=== PATIENT | male | born 1970 | race Caucasian/White ===

== ENCOUNTER → 2017-10-30 | Outpatient (CLI) | payer BC, SELFPAY | PROVIDERS: Family Provider Internal Medicine; Visit Provider Internal Medicine | DX: R07.9 Chest pain, unspecified (principal) | CPT/HCPCS: 78452; 93017; A9502 ==

== ENCOUNTER → 2018-03-30 10:54 | Outpatient (CLI) | payer BC, SELFPAY ==
--- NOTE | 2018-03-30 11:00 | US_ITS ---
US extremity RT limited CLINICAL INDICATION: ITS.REASON: RT GROIN PAIN AND SWELLING ORDERING PHYSICIAN: Bryant Hogan PATIENT AGE: 47 years Comparison: None FINDINGS: General survey was performed of the right groin. There are a few small lymph nodes measuring up to 3 x 0.7 cm. No mass or abnormal fluid collection. IMPRESSION: Small inguinal lymph nodes otherwise negative
== END ==
PROVIDERS: PCP Internal Medicine; Visit Provider Internal Medicine
DX: R10.31 Right lower quadrant pain (principal); R19.09 Other intra-abdominal and pelvic swelling, mass and lump
CPT/HCPCS: 76882

== ENCOUNTER → 2019-02-04 14:05 | Outpatient (CLI) | payer BC, SELFPAY ==
--- NOTE | 2019-02-04 14:08 | MR_ITS ---
MR hip RT wo con Ordering Physician: Bryant Hogan Patient Age: 48 years: Male HISTORY: ITS.REASON: RIGHT GROIN PAIN Right groin right hip pain 3 years has gotten worse recently. Pain worse with pronounced intermittent swelling in groin. TECHNIQUE: Multiplanar multisequence imaging 1.5 T jenn MRI COMPARISON :No recent study. Right hip exam from December 2007 available FINDINGS Right hip.. Narrowing superior right hip joint space reflecting degenerative arthritic changes most evident here.. Minor sclerotic changes at the lateral roof of the right acetabulum associated. This was evident on previous plain film & again evident today if not slightly more pronounced at the lateral roof of acetabulum.. The femoral head demonstrates only some minor sclerotic changes with anterior aspect with the joint space is most narrowed. Minor hypertrophic ridging, lipping is seen about the margin of acetabulum. This is slightly more evident inferiorly on the right than left. With this is also some minor hypertrophic ridging about the base of the femoral head, most evident inferiorly, as seen on coronal image 24, 23 Acetabular labrum difficult to visualize but appears smaller I believe on the right than left likely degenerated but present The femoral head itself is normal density with no evidence of avascular necrosis or lesion. No fracture. There is a joint effusion at the right hip. Pelvis. Urinary bladder wall upper normal thickness in part reflecting is contracted state. Generous vessels at the pelvic basin and about prostate. The prostate normal size. No pelvic adenopathy or mass. Otherwise at the right groin I see no hernia or adenopathy at the right inguinal region. Muscles and tendons appear reasonably symmetric. IMPRESSION: ......... Degenerative Arthritic changes Right hip. Right hip joint effusion associated ... Joint space narrowing at superior right hip joint most evident. .....Mild sclerosis lateral roof of acetabulum with very minor sclerosis anterior superior femoral head. .... Mild hypertrophic lipping about the joint margin particularly notable inferiorly, both from at acetabulum & base of femoral head. .... Likely degenerated slightly small superior labrum. .... No AVN of femoral head
== END ==
PROVIDERS: PCP Internal Medicine; Visit Provider Internal Medicine
DX: R10.31 Right lower quadrant pain (principal)
CPT/HCPCS: 73721

== ENCOUNTER → 2021-01-25 09:01 | Outpatient (CLI) | payer BC, SELFPAY ==
--- NOTE | 2021-01-25 09:08 | XR_ITS ---
PROCEDURE: XR CERVICAL SPINE 5V CLINICAL INDICATION: CERVICALGIA COMPARISON: No exams were available for comparison FINDINGS: No fracture or dislocation. No lytic or blastic change. There is normal mineralization. The joint spaces are well-preserved. No significant degenerative/arthritic changes. No erosive changes evident. Other findings:Minimal soft tissue calcification posteriorly at the C4-C5 level IMPRESSION: Negative cervical spine Dictated by: Shaun Ragland MD 01/25/2021 09:36 Shaun Ragland MD in [facility] 01/25/2021 09:36
== END ==
PROVIDERS: PCP Internal Medicine; Visit Provider Internal Medicine
DX: M54.2 Cervicalgia (principal)
CPT/HCPCS: 72050

== ENCOUNTER → 2021-01-30 09:44 | Outpatient (CLI) | payer BC, SELFPAY ==
--- NOTE | 2021-01-30 09:48 | XR_ITS ---
PROCEDURE: XR CHEST 2V CLINICAL HISTORY: CHEST PAIN COMPARISON: CR CXR CHEST(2 VIEWS-NOT PORTABLE) from 11/06/2014 FINDINGS: The cardiomediastinal silhouette and pulmonary vascularity are within normal limits. The lungs are clear without infiltrates, suspicious nodules, or pleural effusions. Hyperinflation which may be related to COPD/chronic bronchitis. No acute bony findings. IMPRESSION: Hyperinflation which may be seen with COPD asthma or chronic bronchitis. Otherwise negative Dictated by: Shaun Ragland MD 01/30/2021 09:57 Shaun Ragland MD in [facility] 01/30/2021 09:57
--- NOTE | 2021-01-30 10:08 | ECG_ITS ---
APPROVED REPORT Exam: Resting ECG HR:65 bpm ECG Measurements Heart Rate 65 AXES OK 142 P 50 QRSd 88 QRS 103 QT 396 T 12 QTc 411 Conclusion Normal sinus rhythm Rightward axis Minor NDST-T Changes Borderline ECG Electronically signed by : Bryant Hogan, 01/30/2021 11:28:59
[2021-01-30 10:31] LABS: D-Dimer 0.52 ug/mL (0.0-0.5)
[2021-01-30 11:11] LABS: Troponin I < 0.01 ng/ml (0.00-0.034)
--- NOTE | 2021-01-30 11:39 | CT_ITS ---
PROCEDURE: CT ANGIO CHEST CLINCIAL INDICATION: CHEST PAIN Chest pain and pressure COMPARISON: No exams were available for comparison TECHNIQUE: IV Contrast: 70ML Isovue 370 Axial images obtained with sagittal and coronal reformats. All CT scans at the facility use one or more dose reduction, viz: automated exposure control, ma/kV adjustment per patient size (including targeted exams where dose is matched to indication, i.e. head), or iterative reconstruction technique. FINDINGS: HEART AND MEDIASTINAL STRUCTURES: No evidence of pulmonary embolus, aortic aneurysm, or aortic dissection.. Coronary artery calcifications are noted. LUNGS AND PLEURAL SPACES: There is a 3 mm noncalcified nodule in the right middle lobe. Atelectatic changes are present in the right lung base posteriorly. There is a subpleural 4 mm nodule in the right lower lobe medially an additional subpleural 4 mm nodules present in the right lower lobe posterior laterally. Calcified granuloma is present in the left lower lobe. BONY STRUCTURES: No acute bony abnormalities apparent. UPPER ABDOMEN: Unremarkable. ADDITIONAL FINDINGS: No other significant abnormalities. IMPRESSION: 1. No evidence of pulmonary embolus. 2. There are few noncalcified small pulmonary nodules which are nonspecific. Stability may be confirmed with follow-up. Dictated by: Shaun Ragland MD 01/30/2021 14:29 Shaun Ragland MD in [facility] 01/30/2021 14:29
== END ==
PROVIDERS: PCP Internal Medicine; Visit Provider Internal Medicine
DX: R07.9 Chest pain, unspecified (principal)
CPT/HCPCS: 36415; 71046; 71275; 84484; 85378; 93005; Q9967

== ENCOUNTER → 2021-02-04 08:00 | Outpatient (CLI) | payer BC, SELFPAY ==
--- NOTE | 2021-02-04 | CA_ITS ---
APPROVED REPORT EXAM: Comprehensive 2D, Doppler, and color-flow Echocardiogram Plant Packer: Sweta Mariscal CRT Ht: 6 ft 2 in Wt: 240lbs BSA: 2.35 BP: 130/80 mmHg Indications: Chest Pain, Atrial Fibrillation, Syncope, Palpitations, Hyperlipidemia, Hypertension/HDD 2D Dimensions LVOT 2.00 cm (M/F) 1.5-2.5 LA Volume 38.30 mL LA Volume Index 16.30 mL/m2 (M/F) 16-34 M-Mode Dimensions RVDd 1.98 cm (0.9-2.6) LA Diam 4.19 cm (1.9-4.0) LVDd 5.27 cm (3.5-5.7) Ao Diam 3.66 cm (2.0-3.7) LVDs 3.77 cm (3.5-5.7) IVSd 1.38 cm (0.6-1.1) PWd 0.78 cm (0.6-1.1) EF (Teich) 54.50% FS 28.50% EDV (Teich) 133.60 mL TAPSE 3.55 (<1.7) ESV (Teich) 60.80 mL LV Diastology E Decel Time 250.00 (160-240 msec) E/A Ratio 1.23 MED E' 11.30 (< 7 cm/sec) MED A' 10.20 cm/s E'/MED E' Ratio 7.31 (>14) LAT E' 10.80 (<10 cm/sec) LAT A' 9.20 cm/s E/LAT E' Ratio 7.65 (>14) Aortic Valve AO Peak GR. 8.80 mmHg Mitral Valve MV A Velocity 67.00 (40-130 cm/s) E/A Ratio 1.23 MV Decel. Time 250.00 (160-240 ms) Pulmonary Valve PV Peak Velocity 69.00 (50-150 cm/s) Tricuspid Valve TR P. Velocity 271.00 cm/s RAP Estimate 10.00 mmHg RVSP 39.30 mmHg Left Ventricle Left atrium is mildly enlarged, left ventricle is normal size, mild concentric left ventricular hypertrophy, visually estimated ejection fraction 55% with no regional wall motion abnormality, diastolic parameters are inconclusive. Right Ventricle Right atrium and right ventricle are normal size and contractility. Aortic Valve Aortic valve is minimally thickened and fibrosed, there is no aortic stenosis or aortic insufficiency. Mitral Valve Mitral valve is grossly normal, there is trace mitral regurgitation Tricuspid Valve Tricuspid grossly normal, there is trace tricuspid regurgitation. Pulmonic Valve Pulmonic valve is poorly visualized. Great Vessels Aortic root is normal size. Pericardium No significant pericardial effusion noted. Conclusion 1. Mildly enlarged left atrium, normal left ventricular size, mild concentric left ventricular hypertrophy, visually estimated ejection fraction 55% with no regional wall motion abnormality, diastolic parameters are inconclusive. 2. Trace mitral and tricuspid regurgitation. 3. No significant pericardial effusion noted. Electronically signed by : Ketan Taylor, 02/04/2021 20:13:30
== END ==
LOC: RT 08:00
PROVIDERS: PCP Internal Medicine; Visit Provider Internal Medicine
DX: R07.9 Chest pain, unspecified (principal); R55 Syncope and collapse
CPT/HCPCS: 93306

== ENCOUNTER → 2021-02-08 11:07 | Outpatient (CLI) | payer BC, SELFPAY ==
--- NOTE | 2021-02-08 | CA_ITS ---
APPROVED REPORT Exam: Exercise Treadmill Technologist: Tabby Gomez, Ht: 6 ft 2 in Wt: 240 lbs BSA: 2.35 m2 HR: 65 bpm BP: 147/90 mmHg Rhythm: NSR Medical History Medical History: HTN, Hyperlipidemia Medications: Lisinopril,,,,, Zetia,,,,, Atorvastatin,,,,, CarTIA,,,,, ElQUIS,,,,, Allergies: AMPICILLIN Cardiac Risk Factors: HTN, Hyperlipidemia, FHX of CAD Stress Test Details Test: Alessandro HR Resting HR: 79 bpm Max Heart Rate (APMHR): 172.934360 bpm Max HR Achieved: 143 bpm Target HR (85% APMHR): 146.574295 bpm % of APMHR: 83.14 Recovery HR: 103 bpm BP Resting BP: 147.0/90.0 mmHg Max BP: 167.0/83.0 mmHg Recovery BP: 167.0/83.0 mmHg ECG Resting ECG: NSR Clinical Reason for Termination: Dyspnea, HIP PAIN Exercise duration: 08:03 min Highest Stage Achieved: Exercise capacity: 10.1 METs Stress ECG Conclusion PATIENT WALKED 8:00 ON ALESSANDRO PROTOCOL WITH HEART RATE 143 BPM. METS = 10.1. TEST STOPPED DUE TO SOA AND HIP PAIN. NO CP. PATIENT HAD SOA AND HIP PAIN. NO ARRHYTHMIAS/ECTOPY. <1.5MM ST SEGMENT CHANGES. ABNORMAL NONDIAGNOSTIC ST SEGMENT CHANGES INFEROLAT. Test Summary . Sitting . . . . . . . . Stage held . Stage resumed Stop exercise at 08:03 . . . . . . Electronically signed by : Ketan Taylor, 02/09/2021 13:18:19
--- NOTE | 2021-02-08 11:09 | NM_ITS ---
APPROVED REPORT Exam: Nuclear Stress Test Indication: HTN, HYPERLIPIDEMIA, FM HX, PALPITATIONS, A-FB, ABLATION, SYNCOPE Patient Location: Outpatient Stress Tech: Araseli Patricia [place] Tech:Ilda Gongora, ARRT, RT (R)(N) Ht: 6 ft 2 in Wt: 240 lbs HR: 65 bpm BP: 147/90 mmHg BSA: 2.35 m2 BMI: 30.8 History: HTN, HYPERLIPIDEMIA, FM HX, PALPITATIONS, A-FB, ABLATION, SYNCOPE Procedure: Patient exercised on Alessandro protocol 8:00 minutes and sec, resting heart rate 65 bpm, resting blood pressure 147/90 mmHg, with exercise maximum heart rate achived was 143 bpm which is 98 % of the maximum predicted heart rate and blood pressure was 166/90 mmHg. Test was stopped due to SOA, HIP PAIN. Patient denied any complaint of chest pain. Patient has Good exercise capacity, achieved 10.1 METs of workload on treadmill, the blood pressure response to exercise was Adequate. Electrocardiogram Resting electrocardiogram shows sinus rhythm, with exercise there is less than 1.[address] segment depression noted from the baseline EKG, the EKG portion of the exercise Myoview is nondiagnostic due to baseline abnormal EKG. Cardiac Stress and Resting SPECT Images: Cardiac Stress and Resting SPECT images were obtained using technetium 99m Myoview 30.4 mCi stress and 10.48 mCi at rest. Gated SPECT for analysis of segmental wall motion and calculation of the ejection fraction also done. Prone images were also obtained. Cardiac stress and resting SPECT images show a mild fixed defect in the anterior apical wall with reduced contractility on the gated SPECT is likely secondary to nontransmural myocardial scarring, no reversible ischemia seen, computer derived ejection fraction is 52% with mild anterior apical wall hypokinesis. Right ventricle is normal size and contractility. Conclusion: 1. The EKG portion of the exercise Myoview is nondiagnostic due to baseline abnormal EKG, patient has good exercise capacity achieved 10.1 mets of workload on treadmill, the blood pressure response to exercise was adequate. 2. Scintigraphic evidence of nontransmural myocardial scarring and a small area in the anterior apical wall, computer derived ejection fraction is 52% with segmental wall motion abnormality described above, right ventricle is normal size and contractility. 3. Abnormal exercise Myoview study. Electronically signed by : Ketan Taylor, 02/09/2021 13:32:41
== END ==
LOC: RAD 11:07
PROVIDERS: PCP Internal Medicine; Visit Provider Internal Medicine
DX: R07.9 Chest pain, unspecified (principal); R55 Syncope and collapse
CPT/HCPCS: 78452; 93017; A9502

== ENCOUNTER → 2021-03-18 14:59 | Outpatient (CLI) | payer BC, SELFPAY ==
--- NOTE | 2021-03-18 | CA_ITS ---
APPROVED REPORT Trapper Animal: CT Laterality: Bilateral Indications: Dizziness and Vertigo, Syncope Risk Factors Hypertension: Hyperlipidemia Doppler Spectral Velocity Analysis ECA (R) 83.00/ cm/s ECA (L) 118.20/ cm/s dICA (R) 71.70/25.50 cm/s dICA (L) 90.50/32.90 cm/s Willie (R) 50.90/15.80 cm/s Willie (L) 77.80/25.40 cm/s pICA (R) 58.30/17.10 cm/s pICA (L) 71.80/26.90 cm/s dCCA (R) 87.40/19.70 cm/s dCCA (L) 107.10/28.30 cm/s pCCA (R) 112.20/24.00 cm/s pCCA (L) 142.20/23.10 cm/s Vert (R) 50.50/ cm/s Vert (L) 43.80/ cm/s ICA/CCA 0.80 ICA/CCA 0.90 Findings Duplex evaluation demonstrates stenosis of the right proximal internal carotid artery <20%. Duplex evaluation demonstrates stenosis of the left proximal internal carotid artery <20%. Duplex evaluation demonstrates antegrade flow of the bilateral Vertebral Arteries. Conclusion Duplex evaluation demonstrates stenosis of the right proximal internal carotid artery <20%. Duplex evaluation demonstrates stenosis of the left proximal internal carotid artery <20%. Duplex evaluation demonstrates antegrade flow of the bilateral Vertebral Arteries. Electronically signed by : Laurence Kirby, 03/19/2021 15:55:54
== END ==
LOC: RT 15:00
PROVIDERS: PCP Internal Medicine; Visit Provider Internal Medicine
DX: R42 Dizziness and giddiness (principal); R55 Syncope and collapse; R51.9 Headache, unspecified
CPT/HCPCS: 93880

== ENCOUNTER → 2021-03-20 15:08 | Outpatient (CLI) | payer BC, SELFPAY ==
--- NOTE | 2021-03-20 | CT_ITS ---
PROCEDURE: CT HEAD/BRAIN WO CON CLINICAL INDICATION: HEADACHE, DIZZINESS COMPARISON: CT HDWO CT HEAD W/O CONTRAST from 10/17/2014 TECHNIQUE: Axial images obtained. All CT scans at the facility use one or more dose reduction, viz: automated exposure control, ma/kV adjustment per patient size (including targeted exams where dose is matched to indication, i.e. head), or iterative reconstruction technique. FINDINGS: No midline shift, mass effect, intracranial hemorrhage, hydrocephalus, or extra-axial fluid collection is evident. The ventricles are normal in size, shape and symmetry. Deal-white matter differentiation is within normal limits without evidence of acute infarcts. Brain parenchymal volume is appropriate for the age of the patient. No midline shift or mass effect. The visualized osseous structures are unremarkable. No mastoid effusion. No sinus air-fluid level. IMPRESSION: No acute intracranial finding Dictated by: Laurence Kirby 03/20/2021 15:40 Laurence Kirby in [facility] 03/20/2021 15:40
== END ==
LOC: RAD 15:11
PROVIDERS: PCP Internal Medicine; Visit Provider Internal Medicine
DX: R51.9 Headache, unspecified (principal); R42 Dizziness and giddiness
CPT/HCPCS: 70450

== ENCOUNTER → 2021-05-18 08:28 | Outpatient (CLI) | payer BC, SELFPAY ==
[2021-05-18 08:46] LABS: Basophils % 0.5 % (0.1-2.0); Eosinophils # 0.1 K/mm3 (0.0-0.4); Eosinophils % 1.9 % (0.1-12.0); Hematocrit 47.8 % (42.0-52.0); Hemoglobin 16.2 g/dL (14.1-18.0); Lymphocytes # 2.5 K/mm3 (0.7-4.5); Lymphocytes % 36.3 % (10-50); Mean Corpuscular Volume 88.1 fl (80-94); Mean Platelet Volume 7.8 fl (7.4-10.4); Monocytes # 0.5 K/mm3 (0.1-1.0); Monocytes % 7.4 % (1.7-9.3); Neutrophils # 3.7 K/mm3 (1.8-7.8); Neutrophils % 53.9 % (37.0-80.0); Platelet Count 285 K/mm3 (142-424); Red Blood Count 5.42 M/mm3 (4.60-6.20); Red Cell Distribution Width 13.3 % (11.5-17.5); White Blood Count 6.9 K/mm3 (4.8-10.8)
--- NOTE | 2021-05-18 08:49 | MR_ITS ---
PROCEDURE INFORMATION: Exam: MR Head Without and With Contrast Exam date and time: 05/18/2021 8:49 AM Age: 51 years old Clinical indication: PT C/O dizziness with headaches. TECHNIQUE: Imaging protocol: MR of the head without and with intravenous contrast. Contrast material: PROHANCE; Contrast volume: 20 ml; Contrast route: IV; COMPARISON: CT HEAD/BRAIN WO CON 03/20/2021 3:20 PM FINDINGS: Brain: See Internal auditory canals finding. Cerebral ventricles: Normal. No ventriculomegaly. Bones/joints: Unremarkable. Paranasal sinuses: Normal as visualized. No acute sinusitis. Mastoid air cells: Normal as visualized. No mastoid effusion. Internal auditory canals: High-resolution imaging through the internal auditory canals (IACs) demonstrates normal appearance of the seventh and eighth cranial nerve complexes. The cerebellopontine angle cisterns are unremarkable. There is no abnormal enhancement. Orbital cavity: Unremarkable. Soft tissues: Unremarkable. IMPRESSION: High-resolution imaging through the internal auditory canals (IACs) demonstrates normal appearance of the seventh and eighth cranial nerve complexes. The cerebellopontine angle cisterns are unremarkable. There is no abnormal enhancement.
[2021-05-18 08:52] LABS: Blood Urea Nitrogen 16 mg/dl (9-20); Estimated Glomerular Filt Rate 90 ml/min (>60); GFR (African American) 109 ML/MIN (>60)
[2021-05-18 09:24] LABS: Alanine Aminotransferase 41 U/L (12-78); Albumin Level 4.4 g/dl (3.5-5.0); Albumin/Globulin Ratio 1.4 (1.1-1.8); Alkaline Phosphatase 67 U/L (38-126); Anion Gap 13.1 mEq/L (5-15); Aspartate Amino Transferase 33 U/L (17-59); Bilirubin,Total 0.7 mg/dl (0.2-1.3); Blood Urea Nitrogen 16 mg/dl (9-20); Calcium 9.2 mg/dl (8.4-10.2); Carbon Dioxide 27 mmol/L (22.0-30.0); Chloride 105 mmol/L (98-107); Estimated Glomerular Filt Rate 90 ml/min (>60); GFR (African American) 109 ML/MIN (>60); Globulin 3.1 g/dL (1.3-3.2); Glucose 115 mg/dl (74-100); Potassium 5.1 mmoL/L (3.5-5.1); Sodium 140 mmol/L (136-145); Total Protein,Serum 7.5 g/dl (6.3-8.2)
[2021-05-18 09:53] LABS: Thyroid Stimulating Hormone 1.56 uIU/mL (0.465-4.68)
[2021-05-18 10:27] LABS: Vitamin B12 734 pg/mL (239-931)
[2021-05-18 10:29] LABS: Folate > 20.00 ng/mL
== END ==
LOC: LAB 08:45 → RAD 08:54
PROVIDERS: PCP Internal Medicine; Referring Provider Nurse Practitioner Family; Visit Provider Nurse Practitioner Family
DX: R51.9 Headache, unspecified (principal); R42 Dizziness and giddiness; G89.29 Other chronic pain; I48.91 Unspecified atrial fibrillation; I51.89 Other ill-defined heart diseases; R06.83 Snoring; R53.83 Other fatigue; Z68.30 Body mass index [BMI] 30.0-30.9, adult
CPT/HCPCS: 70553; 80053; 82565; 82607; 82746; 84443; 84520; 85025; A9576

== ENCOUNTER → 2021-06-26 15:18 | Outpatient (CLI) | payer BC, SELFPAY | PROVIDERS: Visit Provider Specialist | DX: Z01.812 Encounter for preprocedural laboratory examination (principal); Z20.822 Contact with and (suspected) exposure to COVID-19 | CPT/HCPCS: U0003 ==

== ENCOUNTER → 2021-07-26 12:22 | Outpatient (CLI) | payer BC, SELFPAY | PROVIDERS: PCP Internal Medicine; Visit Provider Nurse Practitioner | DX: Z20.822 Contact with and (suspected) exposure to COVID-19 (principal); U07.1 COVID-19 | CPT/HCPCS: C9803; U0003; U0005 ==

== ENCOUNTER 2021-10-23 15:33 | Emergency (ER) | payer BC, SELFPAY ==
[2021-10-23] VITALS (10 sets, daily range): BP systolic 119–165; BP diastolic 71–103; PULSE 66–84; RESP 14–22; TEMP 36.7–36.8; O2SAT 96–98; BMI 30.2
--- NOTE | 2021-10-23 15:33 | ECG_ITS ---
APPROVED REPORT Exam: Resting ECG HR:86 bpm ECG Measurements Heart Rate 86 AXES FL 144 P 55 QRSd 88 QRS 81 QT 362 T 54 QTc 433 Conclusion Normal sinus rhythm Left atrial abnormality Borderline ECG Electronically signed by : Hay Mullins MD 10/23/2021 21:11:05
--- NOTE | 2021-10-23 15:45 | XR_ITS ---
PROCEDURE: XR CHEST PORTABLE CLINICAL HISTORY: chest pain COMPARISON: CR CXR CHEST(2 VIEWS-NOT PORTABLE) from 11/06/[address] ANGIO CHEST from 01/30/2021 CR XR CHEST 2V from 01/30/2021 FINDINGS: The cardiomediastinal silhouette and pulmonary vascularity are within normal limits. The lungs are clear without infiltrates, suspicious nodules, or pleural effusions. No acute bony abnormalities. IMPRESSION: No acute findings. Dictated by: Shaun Ragland MD 10/23/2021 16:08 Shaun Ragland MD in [facility] 10/23/2021 16:08
--- NOTE | 2021-10-23 15:49 | PC.NURSE ---
PAMELA HUYNH states not to given pt aspirin at this time r/t pt is on Eliquis
[2021-10-23 16:03] LABS: Basophils % 0.5 % (0.1-2.0); Eosinophils # 0.1 K/mm3 (0.0-0.4); Eosinophils % 1.1 % (0.1-12.0); Hematocrit 46.4 % (42.0-52.0); Hemoglobin 16.1 g/dL (14.1-18.0); Lymphocytes % 37.6 % (10-50); Mean Corpuscular HGB Conc 34.6 g/dL (31.8-35.4); Mean Corpuscular Hemoglobin 29.9 pg (27.0-31.2); Mean Corpuscular Volume 86.4 fl (80-94); Mean Platelet Volume 7.8 fl (7.4-10.4); Monocytes # 0.6 K/mm3 (0.1-1.0); Monocytes % 7.7 % (1.7-9.3); Neutrophils # 4.2 K/mm3 (1.8-7.8); Platelet Count 330 K/mm3 (142-424); Red Blood Count 5.37 M/mm3 (4.60-6.20); Red Cell Distribution Width 13.4 % (11.5-17.5)
[2021-10-23 16:06] LABS: Alanine Aminotransferase 43 U/L (12-78); Albumin Level 4.7 g/dl (3.5-5.0); Albumin/Globulin Ratio 1.4 (1.1-1.8); Alkaline Phosphatase 77 U/L (38-126); Aspartate Amino Transferase 56 U/L (17-59); Bilirubin,Total 0.5 mg/dl (0.2-1.3); Blood Urea Nitrogen 18 mg/dl (9-20); Calcium 9.4 mg/dl (8.4-10.2); Carbon Dioxide 29 mmol/L (22.0-30.0); Chloride 101 mmol/L (98-107); Creatinine Clearance Estimated 150 mL/min (50-200); Estimated Glomerular Filt Rate 90 ml/min (>60); GFR (African American) 109 ML/MIN (>60); Globulin 3.3 g/dL (1.3-3.2); Glucose 90 mg/dl (74-100); Sodium 138 mmol/L (136-145)
[2021-10-23 16:08] LABS: Activated Partial Thrombo Time 30.6 seconds (22.8-30.6); INR 1.05 (0.9-1.1); Prothrombin Time 11.8 seconds (10.1-12.5)
[2021-10-23 16:17] LABS: Troponin I < 0.01 ng/ml (0.00-0.034)
--- NOTE | 2021-10-23 17:07 | HMH.EDCP ---
ED Disposition Clinical Impression: Chest pain Disposition: Home, Self-Care Condition on Discharge: Good Instructions: DI for Atypical Chest Pain Additional Instructions: Please follow-up with your primary care physician in 2 to 3 days as needed. Please make an appointment with your head animal keeper for outpatient management this week in 1-3 days. Please return back to the emergency department for recurrence of symptoms. Referrals: Bryant Hogan [Primary Care Provider] - Time of Disposition: 20:10 - Critical Care Critical Care Time: Yes Attestation: On 10/23/21, the high probability of a clinically significant, sudden or life threatening deterioration of the following system(s) required my full and direct attention, intervention and personal management. The time I documented below is in addition to time spent performing reported procedures but includes the following listed in this critical care notation. Total Critical Care Time: 30 Vital system(s) involved:: Circulatory Failure My critical care processes included: Assessment & monitoring of V/S, Initial and Re-exams, Data Review/Interpretation, Coordinating Care, Medication Orders and management Medical Decision Making - Medical Records Medical records reviewed: Yes: I reviewed the patient's medical records. - Sharad Inquiry Pt receiving controlled substance: No Vital Signs: 10/23/21 15:35 10/23/21 16:01 10/23/21 16:38 Temperature 98.2 F Temperature Source Oral Pulse Rate 79 68 Pulse Rate [Right Radial] 77 Respiratory Rate 18 18 14 Blood Pressure 159/103 H 155/93 H Blood Pressure [Right Arm] 160/94 H Blood Pressure Mean 121 111 Blood Pressure Mean [Right Arm] 116 Blood Pressure Source [Right Arm] Automatic Cuff Blood Pressure Position [Right Arm] Sitting 02 Sat by Pulse Oximetry 98 97 98 Oxygen Delivery Method Room Air 10/23/21 17:00 10/23/21 17:06 10/23/21 17:30 Temperature Temperature Source Pulse Rate 68 69 66 Pulse Rate [Right Radial] Respiratory Rate 20 22 14 Blood Pressure 165/100 H 156/82 H 133/78 Blood Pressure [Right Arm] Blood Pressure Mean 112 106 96 Blood Pressure Mean [Right Arm] Blood Pressure Source [Right Arm] Blood Pressure Position [Right Arm] 02 Sat by Pulse Oximetry 96 97 98 Oxygen Delivery Method 10/23/21 18:00 10/23/21 18:30 10/23/21 18:50 Temperature Temperature Source Pulse Rate 68 69 68 Pulse Rate [Right Radial] Respiratory Rate 21 18 17 Blood Pressure 128/71 122/82 119/78 Blood Pressure [Right Arm] Blood Pressure Mean 90 93 87 Blood Pressure Mean [Right Arm] Blood Pressure Source [Right Arm] Blood Pressure Position [Right Arm] 02 Sat by Pulse Oximetry 97 97 97 Oxygen Delivery Method 10/23/21 20:06 Temperature 98.1 F Temperature Source Oral Pulse Rate 84 Pulse Rate [Right Radial] Respiratory Rate 16 Blood Pressure 141/89 H Blood Pressure [Right Arm] Blood Pressure Mean Blood Pressure Mean [Right Arm] Blood Pressure Source [Right Arm] Blood Pressure Position [Right Arm] 02 Sat by Pulse Oximetry Oxygen Delivery Method Room Air - Lab Data Lab results reviewed: Yes: I reviewed the patient's lab results. Lab Results 10/23/21 15:29: WBC 8.0, RBC 5.37, Hgb 16.1, Hct 46.4, MCV 86.4, MCH 29.9, MCHC 34.6, RDW 13.4, Plt Count 330, MPV 7.8, Neut % (Auto) 53.0, Lymph % (Auto) 37.6, Real % (Auto) 7.7, Eos % (Auto) 1.1, Baso % (Auto) 0.5, Neut # (Auto) 4.2, Lymph # (Auto) 3.0, Real # (Auto) 0.6, Eos # (Auto) 0.1, Baso # (Auto) 0.0 10/23/21 15:29: PT 11.8, INR 1.05, APTT 30.6 10/23/21 15:29: Sodium 138, Potassium 4.0, Chloride 101, Carbon Dioxide 29, Anion Gap 12.0, BUN 18, Creatinine 0.90, Estimated Creat Clear 150, Estimated GFR 90, Est GFR ( Amer) 109, Glucose 90, Calcium 9.4, Total Bilirubin 0.5, AST 56, ALT 43, Alkaline Phosphatase 77, Troponin I < 0.01, Total Protein 8.0, Albumin 4.7, Globulin 3.3 H, Albumin/Globulin Ratio 1.4 10/23/21
--- NOTE | 2021-10-23 18:57 | PC.NURSE ---
blood sent up for second troponin at this time
[2021-10-23 19:45] LABS: Troponin I < 0.01 ng/ml (0.00-0.034)
== END 2021-10-23 20:10 | disposition home or self-care (01) ==
PROVIDERS: Emergency Provider Student in an Organized Health Care Education/Training Program; PCP Internal Medicine
DX: R07.9 Chest pain, unspecified (principal); I48.0 Paroxysmal atrial fibrillation; E78.5 Hyperlipidemia, unspecified; I10 Essential (primary) hypertension; Z79.899 Other long term (current) drug therapy
CPT/HCPCS: 71045; 80053; 84484; 85025; 85610; 85730; 93005; 99283

== ENCOUNTER → 2021-11-06 12:44 | Outpatient (CLI) | payer BC, SELFPAY ==
[2021-11-06 13:15] LABS: Basophils # 0.1 K/mm3 (0-0.2); Basophils % 0.7 % (0.1-2.0); Eosinophils # 0.1 K/mm3 (0.0-0.4); Eosinophils % 1.8 % (0.1-12.0); Hematocrit 51.7 % (42.0-52.0); Hemoglobin 16.6 g/dL (14.1-18.0); Lymphocytes # 2.3 K/mm3 (0.7-4.5); Lymphocytes % 33.7 % (10-50); Mean Corpuscular HGB Conc 32.1 g/dL (31.8-35.4); Mean Corpuscular Volume 93.3 fl (80-94); Mean Platelet Volume 8.6 fl (7.4-10.4); Monocytes # 0.6 K/mm3 (0.1-1.0); Monocytes % 8.4 % (1.7-9.3); Neutrophils # 3.7 K/mm3 (1.8-7.8); Neutrophils % 55.3 % (37.0-80.0); Platelet Count 329 K/mm3 (142-424); Red Blood Count 5.53 M/mm3 (4.60-6.20); Red Cell Distribution Width 13.4 % (11.5-17.5); White Blood Count 6.7 K/mm3 (4.8-10.8)
[2021-11-06 15:01] LABS: Alanine Aminotransferase 49 U/L (12-78); Albumin Level 4.2 g/dl (3.5-5.0); Albumin/Globulin Ratio 1.4 (1.1-1.8); Alkaline Phosphatase 70 U/L (38-126); Anion Gap 9.4 mEq/L (5-15); Aspartate Amino Transferase 42 U/L (17-59); Bilirubin,Total 0.6 mg/dl (0.2-1.3); Blood Urea Nitrogen 13 mg/dl (9-20); Calcium 9.7 mg/dl (8.4-10.2); Carbon Dioxide 32 mmol/L (22.0-30.0); Chloride 99 mmol/L (98-107); Chol/HDL Ratio 3.2 (1-3.5); Cholesterol 125 mg/dl (140-200); Estimated Glomerular Filt Rate 90 ml/min (>60); GFR (African American) 109 ML/MIN (>60); Globulin 2.9 g/dL (1.3-3.2); Glucose 86 mg/dl (74-100); HDL Cholesterol 39 mg/dl (40-60); Potassium 4.4 mmoL/L (3.5-5.1); Sodium 136 mmol/L (136-145); Total Protein,Serum 7.1 g/dl (6.3-8.2); Triglycerides 108 mg/dl (30-150); VLDL Cholesterol 22 mg/dL (0-40)
[2021-11-06 15:12] LABS: Direct LDL Cholesterol 69.62 mg/dL (100-129)
== END ==
PROVIDERS: Visit Provider Internal Medicine
DX: I25.10 Atherosclerotic heart disease of native coronary artery without angina pectoris (principal); I48.0 Paroxysmal atrial fibrillation; I10 Essential (primary) hypertension; E78.5 Hyperlipidemia, unspecified
CPT/HCPCS: 80053; 80061; 85025

== ENCOUNTER 2022-04-12 13:10 | Emergency (ER) | payer BC, SELFPAY ==
[2022-04-12] VITALS (9 sets, daily range): BP systolic 104–179; BP diastolic 59–97; PULSE 54–88; RESP 16–19; TEMP 36.6; O2SAT 95–98; BMI 30.2
[2022-04-12 13:22] LABS: POC Glucose,Bedside 105 (70-110)
--- NOTE | 2022-04-12 13:22 | HMH.EDGENADL ---
ED Disposition Clinical Impression: Arm pain Disposition: Home, Self-Care Condition on Discharge: Good Instructions: DI for Acute Pain -- Adult Additional Instructions: Follow-up with your bottom polisher and return to the ER for any new or worsening symptoms. Referrals: Bryant Hogan MD [Primary Care Provider] - Time of Disposition: 17:37 - Critical Care Critical Care Time: No Attestation: On , the high probability of a clinically significant, sudden or life threatening deterioration of the following system(s) required my full and direct attention, intervention and personal management. The time I documented below is in addition to time spent performing reported procedures but includes the following listed in this critical care notation. Medical Decision Making - Medical Records Medical records reviewed: Yes: I reviewed the patient's medical records. - Hsarad Inquiry Pt receiving controlled substance: No Vital Signs: 04/12/22 13:11 04/12/22 14:00 04/12/22 14:30 Temperature 98 F Temperature Source Oral Pulse Rate 60 62 Pulse Rate [Radial] 88 Respiratory Rate 16 19 16 Blood Pressure 118/72 122/77 Blood Pressure [Right Arm] 179/97 H Blood Pressure Mean Blood Pressure Mean [Right Arm] 124 Blood Pressure Position [Right Arm] Sitting 02 Sat by Pulse Oximetry 97 95 95 Oxygen Delivery Method Room Air 04/12/22 15:00 04/12/22 15:31 04/12/22 16:00 Temperature Temperature Source Pulse Rate 60 61 54 L Pulse Rate [Radial] Respiratory Rate 18 17 17 Blood Pressure 123/77 104/59 L 118/64 Blood Pressure [Right Arm] Blood Pressure Mean 88 74 Blood Pressure Mean [Right Arm] Blood Pressure Position [Right Arm] 02 Sat by Pulse Oximetry 97 97 96 Oxygen Delivery Method - Lab Data Lab results reviewed: Yes: I reviewed the patient's lab results. Lab Results 04/12/22 13:15: POC Glucose 105 04/12/22 13:26: WBC 7.6, RBC 5.39, Hgb 16.5, Hct 49.2, MCV 91.2, MCH 30.7, MCHC 33.6, RDW 13.2, Plt Count 357, MPV 8.2, Neut % (Auto) 59.4, Lymph % (Auto) 30.3, [place] % (Auto) 7.8, Eos % (Auto) 1.5, Baso % (Auto) 1.1, Neut # (Auto) 4.5, Lymph # (Auto) 2.3, [place] # (Auto) 0.6, Eos # (Auto) 0.1, Baso # (Auto) 0.1 04/12/22 13:26: Troponin I < 0.01, Lipase 47 04/12/22 13:26: PT 11.9, INR 1.06 04/12/22 13:26: Sodium 139, Potassium 3.7, Chloride 102, Carbon Dioxide 27, Anion Gap 13.7, BUN 14, Creatinine 0.90, Estimated Creat Clear 150, Estimated GFR 90, Est GFR ( Amer) 109, Glucose 116 H, Calcium 9.4 04/12/22 13:26: D-Dimer 0.49 04/12/22 13:27: SARS-CoV-2 (PCR) Not detected, Influenza A Untype (PCR) Not detected, Influenza Type B (PCR) Not detected 04/12/22 16:37: Troponin I < 0.01 Result diagrams: 04/12/22 13:26 04/12/22 13:26 Orders (Tests/Meds): ED MEDICATIONS Discontinued Medications Generic Name Dose Route Start Last Admin Trade Name Freq PRN Reason Stop Dose Admin Sodium Chloride 1,000 mls @ 999 mls/hr 04/12/22 14:00 04/12/22 16:02 Sod Chlor 0.9% 1000ml Bag IV 04/12/22 15:00 999 mls/hr .Q1H1M TONG Administration Ketorolac Tromethamine 15 mg 04/12/22 13:26 04/12/22 16:06 Ketorolac 30mg/Ml Vial IV 04/12/22 13:27 Not Given ONCE ONE ORDERS Category Date Time Status Troponin I Q3H Lab 04/12/22 19:30 Ordered - Radiology Data #1 Image(s): Chest Image Reviewed: Yes I have reviewed radiologist's interpretation Patient: Akash Walton MR#: [id number] : 1970 Acct:[id number] Age/Sex: 51 / M ADM Date: 04/12/22 Loc: ER Attending Dr: Ordering Physician: Hiren Godinez MD Date of Service: 04/12/22 Procedure(s): XR chest portable Accession Number(s): [id number] cc: Sara Taylor MD; Bryant Hogan ~ PROCEDURE INFORMATION: Exam: XR Chest Exam date and time: 04/12/2022 1:35 PM Age: 51 years old Clinical indication: Pain; Chest pressure; Additional info: Chest pain WALTER
--- NOTE | 2022-04-12 13:26 | ECG_ITS ---
APPROVED REPORT Exam: Resting ECG HR:81 bpm ECG Measurements Heart Rate 81 AXES OR 158 P 75 QRSd 80 QRS 101 QT 348 T 64 QTc 385 Conclusion SINUS RHYTHM RIGHT AXIS DEVIATION [QRS AXIS > 100] NONSPECIFIC T-WAVE ABNORMALITY ABNORMAL ECG UNCONFIRMED REPORT Electronically signed by : Hay Mullins MD 04/12/2022 17:22:35
--- NOTE | 2022-04-12 13:26 | XR_ITS ---
PROCEDURE INFORMATION: Exam: XR Chest Exam date and time: 04/12/2022 1:35 PM Age: 51 years old Clinical indication: Pain; Chest pressure; Additional info: Chest pain TECHNIQUE: Imaging protocol: XR of the chest. Views: 1 view. COMPARISON: CR XR CHEST PORTABLE 10/23/2021 3:58 PM FINDINGS: Lungs: Minimal regions of parenchymal scarring at the left lung base. Pleural spaces: Unremarkable. No pleural effusion. No pneumothorax. Heart/Mediastinum: Unremarkable. No cardiomegaly. Bones/joints: Unremarkable. IMPRESSION: No evidence of acute cardiopulmonary disease.
[2022-04-12 13:44] LABS: Coronavirus 19, PCR Not Detected (NotDetected); Influenza A, PCR Not Detected (NotDetected); Influenza B, PCR Not Detected (NotDetected)
[2022-04-12 13:48] LABS: Chloride 102 mmol/L (98-107); Potassium 3.7 mmoL/L (3.5-5.1); Sodium 139 mmol/L (136-145)
[2022-04-12 13:50] LABS: Lipase 47 U/L (23-300)
[2022-04-12 13:51] LABS: Anion Gap 13.7 mEq/L (5-15); Blood Urea Nitrogen 14 mg/dl (9-20); Calcium 9.4 mg/dl (8.4-10.2); Carbon Dioxide 27 mmol/L (22.0-30.0); Creatinine Clearance Estimated 150 mL/min (50-200); Estimated Glomerular Filt Rate 90 ml/min (>60); GFR (African American) 109 ML/MIN (>60); Glucose 116 mg/dl (74-100)
[2022-04-12 13:54] LABS: INR 1.06 (0.9-1.1); Prothrombin Time 11.9 seconds (10.1-12.5)
[2022-04-12 14:01] LABS: Basophils # 0.1 K/mm3 (0-0.2); Basophils % 1.1 % (0.1-2.0); Eosinophils # 0.1 K/mm3 (0.0-0.4); Eosinophils % 1.5 % (0.1-12.0); Hematocrit 49.2 % (42.0-52.0); Hemoglobin 16.5 g/dL (14.1-18.0); Lymphocytes # 2.3 K/mm3 (0.7-4.5); Lymphocytes % 30.3 % (10-50); Mean Corpuscular HGB Conc 33.6 g/dL (31.8-35.4); Mean Corpuscular Hemoglobin 30.7 pg (27.0-31.2); Mean Corpuscular Volume 91.2 fl (80-94); Mean Platelet Volume 8.2 fl (7.4-10.4); Monocytes # 0.6 K/mm3 (0.1-1.0); Monocytes % 7.8 % (1.7-9.3); Neutrophils # 4.5 K/mm3 (1.8-7.8); Neutrophils % 59.4 % (37.0-80.0); Platelet Count 357 K/mm3 (142-424); Red Blood Count 5.39 M/mm3 (4.60-6.20); Red Cell Distribution Width 13.2 % (11.5-17.5); White Blood Count 7.6 K/mm3 (4.8-10.8)
[2022-04-12 14:07] LABS: Troponin I < 0.01 ng/ml (0.00-0.034)
--- NOTE | 2022-04-12 14:18 | PC.NURSE ---
patient called out and asked to go to the bathroom, was unhooked from vital signs and cardiac monitoring. Ambulated to bathroom without any assistance.
--- NOTE | 2022-04-12 14:20 | PC.NURSE ---
patient back in bed after going to bathroom. Hooked back up to cardiac monitoring and vital signs. is bedside.
--- NOTE | 2022-04-12 14:46 | PC.NURSE ---
patient is resting in bed. nothing needed at this time. call light is within reach. is bedside. Awaiting lab results.
--- NOTE | 2022-04-12 16:24 | PC.NURSE ---
patient called out and asked that he go to the bathroom, patient was unhooked from vital signs and cardiac monitoring, took saline fluids to bathroom with him. Ambulated to bathroom without any assistance.
[2022-04-12 16:28] LABS: D-Dimer 0.49 ug/mL (0.0-0.5)
[2022-04-12 17:20] LABS: Troponin I < 0.01 ng/ml (0.00-0.034)
== END 2022-04-12 19:16 | disposition home or self-care (01) ==
PROVIDERS: Emergency Provider Student in an Organized Health Care Education/Training Program; PCP Internal Medicine
DX: M79.602 Pain in left arm (principal); R06.02 Shortness of breath; R53.1 Weakness; I25.10 Atherosclerotic heart disease of native coronary artery without angina pectoris; I48.91 Unspecified atrial fibrillation; Z79.01 Long term (current) use of anticoagulants; Z88.1 Allergy status to other antibiotic agents; E78.5 Hyperlipidemia, unspecified; I10 Essential (primary) hypertension; M19.90 Unspecified osteoarthritis, unspecified site; Z87.891 Personal history of nicotine dependence
CPT/HCPCS: 71045; 80048; 82962; 83690; 84484; 85025; 85378; 85610; 96365; 99284; C9803; U0003; U0005

== ENCOUNTER → 2022-08-08 15:42 | Outpatient (CLI) | payer BC, SELFPAY ==
--- NOTE | 2022-08-08 15:50 | CT_ITS ---
FINAL REPORT TECHNIQUE: Noncontrast exam. This study was performed with techniques to keep radiation doses as low as reasonably achievable (ALARA). Individualized dose reduction techniques using automated exposure control or adjustment of mA and/or kV according to the patient's size were employed. CLINICAL HISTORY: Headache, unspecified FINDINGS: No abnormal density is seen. Ventricles are normal. There is no hemorrhage. No mass effect is seen. Bone windows show no evidence of fracture. IMPRESSION: No acute findings Reviewed, Interpreted and Dictated by Marisa Ortega MD Transcribed by Josse Beltran Authenticated and . [facility]
== END ==
LOC: RAD 15:45
PROVIDERS: PCP Internal Medicine; Visit Provider Internal Medicine
DX: R51.9 Headache, unspecified (principal); R20.2 Paresthesia of skin
CPT/HCPCS: 70450

== ENCOUNTER → 2022-11-07 11:34 | Outpatient (CLI) | payer BC, SELFPAY ==
[2022-11-07 14:35] LABS: Basophils # 0.1 K/mm3 (0-0.2); Basophils % 0.8 % (0.1-2.0); Eosinophils # 0.1 K/mm3 (0.0-0.4); Hemoglobin 16.1 g/dL (14.1-18.0); Lymphocytes # 2.6 K/mm3 (0.7-4.5); Mean Corpuscular HGB Conc 32.9 g/dL (31.8-35.4); Mean Corpuscular Hemoglobin 29.8 pg (27.0-31.2); Mean Corpuscular Volume 90.6 fl (80-94); Mean Platelet Volume 9.1 fl (7.4-10.4); Monocytes # 0.5 K/mm3 (0.1-1.0); Monocytes % 7.3 % (1.7-9.3); Neutrophils # 3.8 K/mm3 (1.8-7.8); Neutrophils % 53.8 % (37.0-80.0); Platelet Count 355 K/mm3 (142-424); Red Blood Count 5.41 M/mm3 (4.60-6.20); Red Cell Distribution Width 13.4 % (11.5-17.5); White Blood Count 7.1 K/mm3 (4.8-10.8)
[2022-11-07 14:56] LABS: Alanine Aminotransferase 46 U/L (12-78); Albumin Level 4.4 g/dl (3.5-5.0); Albumin/Globulin Ratio 1.4 (1.1-1.8); Alkaline Phosphatase 88 U/L (38-126); Anion Gap 14.5 mEq/L (5-15); Aspartate Amino Transferase 35 U/L (17-59); Bilirubin,Total 0.6 mg/dl (0.2-1.3); Blood Urea Nitrogen 16 mg/dl (9-20); Calcium 9.1 mg/dl (8.4-10.2); Carbon Dioxide 29 mmol/L (22.0-30.0); Chloride 102 mmol/L (98-107); Chol/HDL Ratio 3.3 (1-3.5); Cholesterol 130 mg/dl (140-200); Estimated Glomerular Filt Rate 89 ml/min (>60); GFR (African American) 108 ML/MIN (>60); Globulin 3.1 g/dL (1.3-3.2); Glucose 86 mg/dl (74-100); HDL Cholesterol 39 mg/dl (40-60); Potassium 4.5 mmoL/L (3.5-5.1); Sodium 141 mmol/L (136-145); Total Protein,Serum 7.5 g/dl (6.3-8.2); Triglycerides 90 mg/dl (30-150); VLDL Cholesterol 18 mg/dL (0-40)
[2022-11-07 15:07] LABS: Direct LDL Cholesterol 71.48 mg/dL (100-129)
[2022-11-07 15:25] LABS: Prostate Specific Ag Screen 0.6 ng/ml (0.0-4.0)
[2022-11-09 08:17] LABS: Testosterone,Total 361 ng/dL (264-916)
== END ==
PROVIDERS: PCP Internal Medicine; Visit Provider Internal Medicine
DX: I25.10 Atherosclerotic heart disease of native coronary artery without angina pectoris (principal); I10 Essential (primary) hypertension; I48.0 Paroxysmal atrial fibrillation; E78.5 Hyperlipidemia, unspecified; E29.1 Testicular hypofunction
CPT/HCPCS: 80053; 80061; 84403; 85025; G0103

== ENCOUNTER → 2022-12-19 14:25 | Outpatient (CLI) | payer BC, SELFPAY ==
--- NOTE | 2022-12-19 14:45 | ECG_ITS ---
APPROVED REPORT Exam: Resting ECG Conclusion NSR,INCOMPLETE RBBB, RAD,NDST-Deangelo KHAN-NO ACUTE CHANGES COMPARED TO OLD EKG Electronically signed by : Bryant Hogan MD 12/19/2022 15:29:04
== END ==
LOC: RT 14:25
PROVIDERS: PCP Internal Medicine; Visit Provider Internal Medicine
DX: R07.9 Chest pain, unspecified (principal); R42 Dizziness and giddiness
CPT/HCPCS: 93005

== ENCOUNTER → 2022-12-29 10:03 | Outpatient (CLI) | payer BC, SELFPAY ==
--- NOTE | 2022-12-29 10:25 | ECG_ITS ---
APPROVED REPORT Exam: Resting ECG HR:69 bpm ECG Measurements Heart Rate 69 AXES GA 159 P 53 QRSd 89 QRS 98 QT 372 T 18 QTc 391 Conclusion SINUS RHYTHM WITH OCCASIONAL VENTRICULAR PREMATURE COMPLEXES BORDERLINE RIGHT AXIS DEVIATION [QRS AXIS > 90] NDST-T CHANGES ABNORMAL ECG-NO ACUTE CHANGES COMPARED TO OLD EKG' S Electronically signed by : Bryant Hogan MD 01/09/2023 15:52:42
[2022-12-29 10:38] LABS: Chloride 106 mmol/L (98-107); Potassium 4.7 mmoL/L (3.5-5.1); Sodium 142 mmol/L (136-145)
[2022-12-29 10:41] LABS: Basophils # 0.1 K/mm3 (0-0.2); Basophils % 0.9 % (0.1-2.0); Blood Urea Nitrogen 13 mg/dl (9-20); Eosinophils # 0.1 K/mm3 (0.0-0.4); Eosinophils % 1.4 % (0.1-12.0); Estimated Glomerular Filt Rate 89 ml/min (>60); GFR (African American) 108 ML/MIN (>60); Hematocrit 50.9 % (42.0-52.0); Hemoglobin 16.8 g/dL (14.1-18.0); Lymphocytes # 1.9 K/mm3 (0.7-4.5); Lymphocytes % 25.2 % (10-50); Mean Corpuscular Hemoglobin 29.7 pg (27.0-31.2); Mean Corpuscular Volume 90.2 fl (80-94); Mean Platelet Volume 7.9 fl (7.4-10.4); Monocytes # 0.5 K/mm3 (0.1-1.0); Neutrophils # 5.1 K/mm3 (1.8-7.8); Neutrophils % 65.5 % (37.0-80.0); Platelet Count 346 K/mm3 (142-424); Red Blood Count 5.64 M/mm3 (4.60-6.20); Red Cell Distribution Width 13.1 % (11.5-17.5); White Blood Count 7.7 K/mm3 (4.8-10.8)
[2022-12-29 10:42] LABS: Anion Gap 10.7 mEq/L (5-15); Calcium 9.2 mg/dl (8.4-10.2); Carbon Dioxide 30 mmol/L (22.0-30.0); Glucose 109 mg/dl (74-100)
[2022-12-29 10:55] LABS: Troponin I < 0.01 ng/ml (0.00-0.034)
== END ==
LOC: LAB 10:03
PROVIDERS: PCP Internal Medicine; Visit Provider Internal Medicine
DX: R00.2 Palpitations (principal); I48.0 Paroxysmal atrial fibrillation; R55 Syncope and collapse
CPT/HCPCS: 36415; 80048; 84484; 85025; 93005

== ENCOUNTER 2023-06-29 09:30 | Outpatient (RCR) | payer BC, SELFPAY | END 2023-06-29 09:35 | disposition home or self-care (01) | LOC: PT 09:30 | PROVIDERS: PCP Internal Medicine; Visit Provider Orthopaedic Surgery | DX: M25.551 Pain in right hip (principal); Z96.641 Presence of right artificial hip joint | CPT/HCPCS: 97110; 97163; 97530 ==

== ENCOUNTER 2023-11-23 12:49 | Outpatient (CLI) | payer BC, SELFPAY ==
[2023-11-23 13:06] LABS: Basophils % 0.6 % (0.1-2.0); Eosinophils # 0.1 K/mm3 (0.0-0.4); Eosinophils % 1.4 % (0.1-12.0); Hematocrit 50.3 % (42.0-52.0); Hemoglobin 17.1 g/dL (14.1-18.0); Lymphocytes # 2.1 K/mm3 (0.7-4.5); Lymphocytes % 34.6 % (10-50); Mean Corpuscular Hemoglobin 30.9 pg (27.0-31.2); Mean Platelet Volume 9.2 fl (7.4-10.4); Monocytes # 0.7 K/mm3 (0.1-1.0); Monocytes % 11.5 % (1.7-9.3); Neutrophils # 3.2 K/mm3 (1.8-7.8); Neutrophils % 51.9 % (37.0-80.0); Platelet Count 243 K/mm3 (142-424); Red Blood Count 5.53 M/mm3 (4.60-6.20); Red Cell Distribution Width 13.6 % (11.5-17.5); White Blood Count 6.2 K/mm3 (4.8-10.8)
[2023-11-23 13:26] LABS: Chloride 100 mmol/L (98-107); Sodium 140 mmol/L (136-145)
[2023-11-23 13:27] LABS: Potassium 4.3 mmoL/L (3.5-5.1)
[2023-11-23 13:29] LABS: Alanine Aminotransferase 41 U/L (12-78); Albumin Level 4.3 g/dl (3.5-5.0); Albumin/Globulin Ratio 1.4 (1.1-1.8); Alkaline Phosphatase 89 U/L (38-126); Anion Gap 15.3 mEq/L (5-15); Aspartate Amino Transferase 35 U/L (17-59); Bilirubin,Total 0.6 mg/dl (0.2-1.3); Blood Urea Nitrogen 9 mg/dl (9-20); Carbon Dioxide 29 mmol/L (22.0-30.0); Cholesterol 119 mg/dl (140-200); Estimated Glomerular Filt Rate 89 ml/min (>60); GFR (African American) 108 ML/MIN (>60); Globulin 3.1 g/dL (1.3-3.2); Total Protein,Serum 7.4 g/dl (6.3-8.2); Triglycerides 87 mg/dl (30-150); VLDL Cholesterol 17 mg/dL (0-40)
[2023-11-23 13:30] LABS: Calcium 8.8 mg/dl (8.4-10.2); Chol/HDL Ratio 4.4 (1-3.5); Glucose 96 mg/dl (74-100); HDL Cholesterol 27 mg/dl (40-60)
[2023-11-23 13:41] LABS: Direct LDL Cholesterol 72.68 mg/dL (100-129)
[2023-11-23 15:56] LABS: Prostate Specific Ag Screen 0.8 ng/ml (0.0-4.0)
== END 2023-11-23 23:59 ==
PROVIDERS: PCP Internal Medicine; Visit Provider Internal Medicine
DX: I11.9 Hypertensive heart disease without heart failure (principal); I25.10 Atherosclerotic heart disease of native coronary artery without angina pectoris; I48.91 Unspecified atrial fibrillation; E78.5 Hyperlipidemia, unspecified; Z12.5 Encounter for screening for malignant neoplasm of prostate; Z98.890 Other specified postprocedural states; Z87.891 Personal history of nicotine dependence
CPT/HCPCS: 80053; 80061; 85025; G0103

== ENCOUNTER 2024-05-24 09:48 | Outpatient (CLI) | payer BC, SELFPAY ==
[2024-05-24 17:44] LABS: Basophils % 0.5 % (0.1-2.0); Eosinophils # 0.1 K/mm3 (0.0-0.4); Hematocrit 49.7 % (42.0-52.0); Hemoglobin 16.4 g/dL (14.1-18.0); Lymphocytes # 1.9 K/mm3 (0.7-4.5); Lymphocytes % 30.5 % (10-50); Mean Corpuscular Hemoglobin 30.8 pg (27.0-31.2); Mean Corpuscular Volume 93.4 fl (80-94); Mean Platelet Volume 9.2 fl (7.4-10.4); Monocytes # 0.5 K/mm3 (0.1-1.0); Monocytes % 8.2 % (1.7-9.3); Neutrophils # 3.7 K/mm3 (1.8-7.8); Neutrophils % 58.9 % (37.0-80.0); Platelet Count 277 K/mm3 (142-424); Red Blood Count 5.33 M/mm3 (4.60-6.20); Red Cell Distribution Width 13.9 % (11.5-17.5); White Blood Count 6.3 K/mm3 (4.8-10.8)
[2024-05-24 18:23] LABS: Alanine Aminotransferase 49 U/L (12-78); Albumin Level 4.2 g/dl (3.5-5.0); Albumin/Globulin Ratio 1.3 (1.1-1.8); Alkaline Phosphatase 78 U/L (38-126); Anion Gap 14.4 mEq/L (5-15); Aspartate Amino Transferase 37 U/L (17-59); Bilirubin,Total 0.8 mg/dl (0.2-1.3); Blood Urea Nitrogen 16 mg/dl (9-20); Calcium 9.4 mg/dl (8.4-10.2); Carbon Dioxide 27 mmol/L (22.0-30.0); Chloride 103 mmol/L (98-107); Chol/HDL Ratio 4.1 (1-3.5); Cholesterol 156 mg/dl (140-200); Estimated Glomerular Filt Rate 89 ml/min (>60); GFR (African American) 107 ML/MIN (>60); Globulin 3.3 g/dL (1.3-3.2); Glucose 79 mg/dl (74-100); HDL Cholesterol 38 mg/dl (40-60); Potassium 4.4 mmoL/L (3.5-5.1); Sodium 140 mmol/L (136-145); Total Protein,Serum 7.5 g/dl (6.3-8.2); Triglycerides 83 mg/dl (30-150); VLDL Cholesterol 17 mg/dL (0-40)
[2024-06-04 04:48] LABS: 1,25 Dihydroxy Vitamin D 42 pg/mL (.); 1,25-Dihydroxy, Vitamin D-2 <10 pg/mL (.); 1,25-Dihydroxy, Vitamin D-3 42 pg/mL (.)
== END 2024-05-24 23:59 | disposition home or self-care (01) ==
LOC: LAB.DROPOF 05-25 09:48
PROVIDERS: PCP Internal Medicine; Visit Provider Internal Medicine
DX: E78.5 Hyperlipidemia, unspecified (principal); I10 Essential (primary) hypertension; E55.9 Vitamin D deficiency, unspecified
CPT/HCPCS: 80053; 80061; 82652; 85025

== ENCOUNTER 2024-10-21 14:06 | Outpatient (CLI) | payer BC, SELFPAY ==
[2024-10-21 08:20] LABS: Adenovirus F 40/41, stool Not Detected (NotDetected); Astrovirus Not Detected (NotDetected); Campylobacter Not Detected (NotDetected); Clostridium Difficile A/B, PCR Not Detected (NotDetected); Cryptosporidium Not Detected (NotDetected); Cyclospora Cayetanesis Not Detected (NotDetected); Entamoeba histolytica Not Detected (NotDetected); Enteroaggregative E coli Not Detected (NotDetected); Enteropathogenic E coli Not Detected (NotDetected); Enterotoxigenic E coli Not Detected (NotDetected); Giardia lamblia Not Detected (NotDetected); Plesimonas Shigalloides, PCR Not Detected (NotDetected); Rotavirus A Not Detected (NotDetected); Salmonella, PCR Not Detected (NotDetected); Sapovirus Not Detected (NotDetected); Shiga-like toxin E coli Not Detected (NotDetected); Shigella Enterovasive E coli Not Detected (NotDetected); Vibrio Cholerae Not Detected (NotDetected); Vibrio, PCR Not Detected (NotDetected); Yersinia Entercolitica, PCR Not Detected (NotDetected)
[2024-10-25 12:49] LABS: Norovirus Detected (NotDetected)
== END 2024-10-21 23:59 | disposition home or self-care (01) ==
LOC: LAB.DROPOF 10-26 14:03
PROVIDERS: PCP Internal Medicine; Visit Provider Internal Medicine
DX: A09 Infectious gastroenteritis and colitis, unspecified (principal)
CPT/HCPCS: 87506

== ENCOUNTER 2024-12-22 13:49 | Outpatient (CLI) | payer BC, SELFPAY ==
[2024-12-22 13:21] LABS: Basophils % 0.4 % (0.1-2.0); Eosinophils # 0.1 K/mm3 (0.0-0.4); Eosinophils % 1.9 % (0.1-12.0); Hematocrit 48.5 % (42.0-52.0); Lymphocytes # 2.2 K/mm3 (0.7-4.5); Lymphocytes % 31.6 % (10-50); Mean Corpuscular Hemoglobin 29.1 pg (27.0-31.2); Mean Corpuscular Volume 88.3 fl (80-94); Mean Platelet Volume 10.4 fl (7.4-10.4); Monocytes # 0.7 K/mm3 (0.1-1.0); Monocytes % 10.4 % (1.7-9.3); Neutrophils # 3.8 K/mm3 (1.8-7.8); Neutrophils % 55.4 % (37.0-80.0); Platelet Count 299 K/mm3 (142-424); Red Blood Count 5.49 M/mm3 (4.60-6.20); Red Cell Distribution Width 12.6 % (11.5-17.5); White Blood Count 6.9 K/mm3 (4.8-10.8)
[2024-12-22 14:20] LABS: Albumin Level 4.3 g/dl (3.5-5.0); Chloride 104 mmol/L (98-107); Potassium 4.5 mmoL/L (3.5-5.1); Sodium 139 mmol/L (136-145)
[2024-12-22 14:23] LABS: Alanine Aminotransferase 56 U/L (12-78); Albumin/Globulin Ratio 1.5 (1.1-1.8); Alkaline Phosphatase 69 U/L (38-126); Anion Gap 11.5 mEq/L (5-15); Aspartate Amino Transferase 42 U/L (17-59); Bilirubin,Total 0.7 mg/dl (0.2-1.3); Blood Urea Nitrogen 19 mg/dl (9-20); Calcium 9.2 mg/dl (8.4-10.2); Carbon Dioxide 28 mmol/L (22.0-30.0); Cholesterol 128 mg/dl (140-200); Estimated Glomerular Filt Rate 118 ml/min (>60); GFR (African American) 143 ML/MIN (>60); Globulin 2.8 g/dL (1.3-3.2); Glucose 87 mg/dl (74-100); Total Protein,Serum 7.1 g/dl (6.3-8.2); Triglycerides 91 mg/dl (30-150); VLDL Cholesterol 18 mg/dL (0-40)
[2024-12-22 14:24] LABS: HDL Cholesterol 32 mg/dl (40-60)
[2024-12-22 14:36] LABS: Direct LDL Cholesterol 72.61 mg/dL (100-129)
[2024-12-22 15:47] LABS: Prostate Specific Ag Screen 0.6 ng/ml (0.0-4.0)
[2024-12-27 21:09] LABS: 1,25 Dihydroxy Vitamin D 30 pg/mL (.); 1,25-Dihydroxy, Vitamin D-2 <10 pg/mL (.); 1,25-Dihydroxy, Vitamin D-3 30 pg/mL (.)
== END 2024-12-22 23:59 | disposition home or self-care (01) ==
LOC: LAB.DROPOF 13:49
PROVIDERS: PCP Internal Medicine; Visit Provider Internal Medicine
DX: I10 Essential (primary) hypertension (principal); E78.5 Hyperlipidemia, unspecified; E55.9 Vitamin D deficiency, unspecified; Z12.5 Encounter for screening for malignant neoplasm of prostate; I25.10 Atherosclerotic heart disease of native coronary artery without angina pectoris
CPT/HCPCS: 80053; 80061; 82652; 85025; G0103

== ENCOUNTER 2025-06-14 03:52 | Emergency (ER) | payer BC, SELFPAY ==
--- OUTSIDE RECORDS SUMMARY | 2025-05-29 05:30 | XMS_ITS | Encounter Summary ---
Author Organization [facility] Address [address] [place] [address] Phone [email or web address] Care Team Providers Care Diesel Bus Mechanic Name Role Phone Bryant Hogan Primary Care Provider Unavailabl e Reason for Visit * Reason Comments [facility] Offerings Return to Work / Duty Encounter Details Date Type Department Care Team (Latest Contact Info) Description 05/29/2025 5:30 AM EDT Clinical Support [facility] [address] [place] [address] Oneida Choe, RN [address] [place] [address] Return to work evaluation (Primary Dx) Social History Tobacco Use Types Packs/Day Years Used Date Smoking Tobacco: Former Cigarettes Q uit: 11/18/2003 Smokeless Tobacco: Former Intimate Partner Violence Answer Date R ecorded Insults You Not on file 02/19/2021 Threatens You Not on file 02/19/2021 Screams at You Not on file 02/19/2021 Physically Hurt Not on file 02/19/2021 Intimate Partner Violence Score Not on file 02/19/2021 Depression Answer Date Recorded PHQ Total Score 0 08/23/2022 Stress Answer Date Recorded Stress in your Life Not on file 09/12/2024 Dealing with Stress 3 09/12/2024 Sex and Gender Information Value Date Recorded Sex Assigned at Not on file Legal Sex Male 7:37 AM CDT Gender Identity Not on file Sexual Orientation Not on file documented as of this encounter Last Filed Vital Signs Vital Sign Reading Time Taken Comments Blood Pressure 131/83 05/29/2025 5:31 AM EDT Pulse 67 05/29/2025 5:31 AM EDT Temperature 36.3 C (97.4 F) 05/29/2025 5:31 AM EDT Respiratory Rate - - Oxygen Saturation 96% 05/29/2025 5:31 AM EDT Inhaled Oxygen Concentration - - Weight - - Height - - Body Mass Index - - documented in this encounter Patient Instructions * Patient Instructions* Oneida Choe RN - 05/29/2025 5:30 AM EDT Return to work full duty today, 05/29/25. F/u as needed. documented in this encounter Progress Notes * Oneida Choe RN - 05/29/2025 5:30 AM EDT Images from the original note were not included. Subjective Akash Walton is a 54 y.o. male who presents for personal return to work. WD ID: [id number] Employer: [employer]: [id number] Shift: 1 Full-time GL and #: Emilie Ulloa LDW: 05/10/25 DOS: NA PROCEDURE: Boot to left Lower leg/ heel SURGEON: FELY RELEASE: - see copy PMLOA. Off work d/t Left achilles injury while working in hard and stepping on shovel. He reports mild swelling that has resolved and he was placed in a walking boot. No xrays or referral to specialist. Used Naproxen sodium. He feels his left heel is 95% improvement and wants to attempt full duty. No swelling noted. He has release to RTW for today. Feels he can RTW full duty. Gait normal. NAD. Triage nurse: Oneida Choe RN HPI History Reviewed: Allergies Meds Med Hx Surg Hx Objective Visit Vitals BP 131/83 Pulse 67 Temp 97.4 ??F SpO2 96% Smoking Status Former Review of Systems PHQ-9 Total Score: 0 (01/11/2025 9:25 AM) Physical Exam as noted. No swelling. No calf or heel tenderness or swelling. Neg kirsten's. Gait normal. Feels fit to RTW s/p wearing boot. Still using boot some at home. No other pending test. Assessment: ICD-10-CM ICD-9-CM 1. Return to work evaluation Z76.89 V72.85 No orders of the defined types were placed in this encounter. There are no Patient Instructions on file for this visit. documented in this encounter Plan of Treatment Not on file documented as of this encounter Visit Diagnoses Diagnosis Return to work evaluation- Primary Other specified examination documented in this encounter Care Teams Diesel Bus Mechanic Relationship Specialty [place] [address] PCP - General Postpartum Nurse 09/20/20 documented as of this encounter
[2025-06-14 03:58] VITALS: BP 185/107; PULSE 64; RESP 16; TEMP 36.6; O2SAT 100; BMI 32.1
--- NOTE | 2025-06-14 04:03 | ECG_ITS ---
APPROVED REPORT Exam: Resting ECG HR:64 bpm ECG Measurements Heart Rate 64 AXES DE 154 P 61 QRSd 93 QRS 90 QT 375 T 101 QTc 384 Conclusion SINUS RHYTHM INCOMPLETE RIGHT BUNDLE BRANCH BLOCK [90+ ms QRS DURATION, TERMINAL R IN V1/V2, 40+ ms S IN I/aVL/V4/V5/V6] MODERATE T-WAVE ABNORMALITY, CONSIDER LATERAL ISCHEMIA [-0.1+ mV T-WAVE IN I/aVL/V5/V6] UNCONFIRMED REPORT Electronically signed by : ALSHA RICHARDSON, 06/14/2025 08:48:23
--- NOTE | 2025-06-14 04:12 | HMH.EDGENADL ---
Discharge Plan Disposition Patient Disposition: Home, Self-Care Prescriptions Prescriptions: No Action famotidine 40 mg tablet 40 mg PO HS Qty: 30 0RF naproxen 500 mg tablet 500 mg PO BID Qty: 60 0RF Rx Instructions: Take with food or meal cholecalciferol (vitamin D3) 50 mcg (2,000 unit) capsule 50 mcg PO DAILY ezetimibe 10 mg tablet 10 mg PO DAILY Qty: 90 1RF apixaban 5 mg tablet 5 mg PO BID Qty: 180 1RF atorvastatin 80 mg tablet 80 mg PO HS Qty: 90 1RF lisinopril 5 mg tablet 5 mg PO DAILY Qty: 90 1RF diltiazem HCl 240 mg capsule,extended release 24hr 240 mg PO DAILY Qty: 90 1RF Referrals Follow up/Referrals: Bryant Hogan MD [Primary Care Provider, Medical] - See instructions Activity Restrictions/Add. Instructions Additional Instructions/Restrictions: Please follow-up with your primary care provider. Please return to the emergency department if you develop any new or worsening symptoms or become concerned for your health. Clinical Impressions Clinical Impression: Bilateral leg weakness, Nausea Stand Alone Forms Stand Alone Forms: Work/School Release Print Language Print Language: Panamanian Discharge ED Provider: Enrrique Moreno Adult [facility] General Chief complaint: Weakness Stated complaint: weakness, nausea, dizziness Time Seen by Provider: 06/14/25 04:00 Mode of Arrival: Ambulatory Source of Information: Patient Description of Symptoms (Recalled from ER Triage Doc. by RN): pt presents to the Ed d/t complaints of driving to work. pt states his legs felt very weak and then started to get dizzy and nauseous. pt complains of no pain. pt has hx of afib and takes 5mg lisinopril for htn History of Present Illness HPI narrative: 55-year-old male with history of hypertension, paroxysmal A-fib, presents for multiple complaints. He reports that he was driving to work when he felt like his legs got weak bilaterally. He also had a little bit of nausea at the time. Denies any other symptoms. Reports no numbness, reports no abdominal pain. Has been having normal bowel movements. Denies any significant prior history of this. Related Data Home Medications ?Medication ?Instructions ?Recorded ?Confirmed cholecalciferol (vitamin D3) 50 50 mcg PO DAILY 05/24/24 05/22/25 mcg (2,000 unit) capsule Previous Rx's ?Medication ?Instructions ?Recorded ezetimibe 10 mg tablet 10 mg PO DAILY #90 tabs 06/21/24 apixaban 5 mg tablet 5 mg PO BID #180 tabs 08/19/24 atorvastatin 80 mg tablet 80 mg PO HS #90 tabs 12/07/24 famotidine 40 mg tablet 40 mg PO HS #30 tabs 05/11/25 naproxen 500 mg tablet 500 mg PO BID #60 tabs 05/11/25 diltiazem HCl 240 mg 240 mg PO DAILY #90 caps 05/30/25 capsule,extended release 24 hr lisinopril 5 mg tablet 5 mg PO DAILY #90 tabs 05/30/25 Allergies Allergy/AdvReac Type Severity Reaction Status Date / Time ampicillin Allergy Intermediate I-RASH Verified 05/22/25 10:43 [facility] Disclaimer: The information contained in this section may have been updated after the patient was seen, as this information can be updated by other users. Social History Smoking Status: Unknown if ever smoked alcohol intake: former substance use type: denies use current occupational status: employed Travel in the last 8 weeks?: None household members: spouse and children housing: house Have you lived/traveled outside US in past 30 days?: No Contact w/someone who lives/traveled outside US past 30 days?: No Exposure to someone with infectious disease in past 14 days?: No Do you have a fever (greater than 100.4 F or 38 C)?: No Have you tested positive for COVID-19?: No Exposed to someone with COVID-19 in past 14 days?: No Do you have a sore throat?: No Do you have a cough?: No Do you have any weakness?: Yes Do you have any diarrhea?: No Are you experiencing any unusual bleeding?: No Do you have any muscle aches/pain?: No Do you have any abdominal pain?: No Are you experiencing loss of taste or smell?: No Other Medical History Have you received the Flu Vaccine for this season: Yes Have you received the Pneumonia Vaccine: No ROS Obtained: Yes All systems reviewed & no additional complaints except as documented Physical Exam General General appearance: alert and in no apparent distress Head Head exam: atraumatic and normocephalic Eye Eye exam: Present normal appearance, PERRL and EOMI ENT ENT exam: Present normal oropharynx and normal external ear exam Neck Neck exam: Present normal inspection and full ROM Chest Chest inspection: Present normal inspection and symmetric chest wall rise; Absent tenderness Respiratory Respiratory exam: Present normal lung sounds bilaterally; Absent respiratory distress Cardiovascular Cardiovascular exam: Present regular rate and normal rhythm Abdominal Exam Abdominal exam: Present soft; Absent distention, tenderness or guarding Extremities Exam Extremities exam: Present normal inspection; Absent edema or joint swelling Back Exam Back exam: Present normal inspection; Absent tenderness Neurological Exam Neurological exam: Present alert and oriented X3; Absent motor sensory deficit Psychiatric Psychiatric exam: Present normal affect and normal mood Skin Skin exam: Present warm, dry and normal color Lymphatic Lymphatic Findings: no adenopathy Medical Decision Making Medical Records Medical records reviewed: Yes I reviewed the patient's medical records. Screening: Per USPSTF and CDC recommendations, given the prevalence of disease in our region, it is our hospital?s policy to screen for HIV and viral Hepatitis for all patients aged 18 and over and those with ongoing risk factors. Sharad Inquiry Pt receiving controlled substance: No Sharad was queried for this patient: No Vital Signs: 06/14/25 03:58 06/14/25 05:08 06/14/25 05:24 Temperature 97.8 F 98.7 F Temperature Source Oral Pulse Rate 61 67 Pulse Rate [Right Radial] 64 Respiratory Rate 16 16 16 Blood Pressure 132/85 132/85 Blood Pressure [Right Radial Artery] 185/107 H Blood Pressure Mean [Right Radial Artery] 133 Blood Pressure Position [Right Radial Artery] Supine 02 Sat by Pulse Oximetry 100 95 Oxygen Delivery Method Room Air Room Air Lab Data Lab results reviewed: Yes I reviewed the patient's lab results. Lab Results 06/14/25 04:02: WBC 8.3, RBC 5.59, Hgb 16.3, Hct 50.2, MCV 89.8, MCH 29.2, MCHC 32.5, RDW 12.8, Plt Count 291, MPV 9.9, Neut % (Auto) 48.5, Lymph % (Auto) 36.5, [place] % (Auto) 12.1 H, Eos % (Auto) 2.1, Baso % (Auto) 0.4, Neut # (Auto) 4.0, Lymph # (Auto) 3.0, [place] # (Auto) 1.0, Eos # (Auto) 0.2, Baso # (Auto) 0.0, Sodium 138, Potassium 4.2, Chloride 103, Carbon Dioxide 29, Anion Gap 10.2, BUN 16, Creatinine 0.70, Estimated Creat Clear 196, Estimated GFR 118, Est GFR ( Amer) 143, Glucose 126 H, Calcium 9.8, Magnesium 2.1, Total Bilirubin 0.9, AST 53, ALT 58, Alkaline Phosphatase 94, Total Protein 8.0, Albumin 4.7, Globulin 3.3 H, Albumin/Globulin Ratio 1.4 06/14/25 04:02 06/14/25 04:02 Orders (Tests/Meds): ORDERS Category Date Time Status CBC w/Auto Diff [Complete Blood Count Auto Diff] Stat Lab 06/14/25 04:02 Completed CMP [Comprehensive Metabolic Panel] Stat Lab 06/14/25 04:02 Completed MAG [Magnesium] Stat Lab 06/14/25 04:02 Completed ECG Data Tracing #1: I reviewed this ECG and interpreted as documented below: Sinus rhythm incomplete right bundle branch block nonspecific ST/T wave changes. Ventricular rate of 64. ECG initial impression date: 06/14/25 ECG initial impression time: 04:03 Medical Decision Narrative: 55-year-old male with history of hypertension, paroxysmal A-fib presents for multiple complaints. History was obtained via interactive discussion with patient. On arrival, patient is [afebrile, hemodynamically stable, satting appropriately, alert, oriented x4, GCS 15], moving all extremities spontaneously. Full physical exam performed and significant for normal strength and sensation in the bilateral lower extremities, benign abdominal exam Differential includes but is not limited to aortic pathology, [employer] pathology, electrolyte derangement. Unclear what is exactly going on. Patient has benign exam including strong distal pulses, normal strength and sensation on exam. The bilateral nature is also reassuring. Has a benign exam. I ordered basic labs and on my independent interpretation it showed that showed no evidence of a serious pathology, normal renal function, no significant leukocytosis etc. Patient reports symptomatic improvement. Overall, low risk concern for emergent pathology at this time. Patient discharged in stable condition with return precautions. Procedures Risk/Benefits of Procedure(s) Were Explained: Yes Critical Care Critical Care Time Critical Care Time: No
[2025-06-14 04:27] LABS: Hematocrit 50.2 % (42.0-52.0); Hemoglobin 16.3 g/dL (14.1-18.0); Immature Granulocytes % 0.4 %; Mean Corpuscular HGB Conc 32.5 g/dL (31.8-35.4); Mean Corpuscular Hemoglobin 29.2 pg (27.0-31.2); Mean Corpuscular Volume 89.8 fl (80-94); Nucleated Red Blood Cells % 0 %; Platelet Count 291 K/mm3 (142-424); Red Blood Count 5.59 M/mm3 (4.60-6.20); Red Cell Distribution Width-SD 42.2 fL; White Blood Count 8.3 K/mm3 (4.8-10.8)
[2025-06-14 04:33] LABS: Alanine Aminotransferase 58 U/L (12-78); Albumin Level 4.7 g/dl (3.5-5.0); Albumin/Globulin Ratio 1.4 (1.1-1.8); Alkaline Phosphatase 94 U/L (38-126); Anion Gap 10.2 mEq/L (5-15); Aspartate Amino Transferase 53 U/L (17-59); Bilirubin,Total 0.9 mg/dl (0.2-1.3); Blood Urea Nitrogen 16 mg/dl (9-20); Calcium 9.8 mg/dl (8.4-10.2); Carbon Dioxide 29 mmol/L (22.0-30.0); Chloride 103 mmol/L (98-107); Creatinine Clearance Estimated 196 mL/min (50-200); Creatinine,Serum 0.70 mg/dl (0.66-1.25); Estimated Glomerular Filt Rate 118 ml/min (>60); GFR (African American) 143 ML/MIN (>60); Globulin 3.3 g/dL (1.3-3.2); Glucose 126 mg/dl (74-100); Magnesium 2.1 mg/dl (1.6-2.3); Potassium 4.2 mmoL/L (3.5-5.1); Sodium 138 mmol/L (136-145); Total Protein,Serum 8.0 g/dl (6.3-8.2)
--- OUTSIDE RECORDS SUMMARY | 2025-06-14 04:42 | XMS_ITS | Encounter Summary ---
Author Organization [employer] ([place], [place], [place], [place]) Address [address] [place] [address] Care Team Providers Care Geotechnical Engineer Name Role Phone Bryant Hogan MD Primary Care Provider [phone] Encounter Details Date Type Department Care Team (Late st Contact Info) Description 03/02/2019 Transcribed Document [facility] [facility] [place] [address] ProviderKel MD [address] [place] [address] Social History Tobacco Use Types Packs/Day Years Used Date Smoking Tobacco: Never Assessed Sex and Gender Information Value Date Recorded Sex Assigned at Not on file Legal Sex Male 6:06 PM CDT Gender Identity Not on file Sexual Orientation Not on file documented as of this encounter Miscellaneous Notes * Cerner Conversion Note - Kel Serrano MD - 03/02/2019 8:08 AM CDT Nursing Discharge Summary Entered On: 03/02/2019 8:09 EDT Performed On: 03/02/2019 8:08 EDT by ELIZABETH ALCANTAR, retreader Documentation Discharge Date/Time : 03/02/2019 15:15 EDT ELIZABETH ALCANTAR, RN - 03/02/2019 15:14 EDT Patient Disposition, General : Discharge Discharge To : Home with ambulatory/outpatient follow-up Mode Of Departure, General Discharge : Private vehicle Accompanied By, Discharge : Spouse IV Discontinued : Yes Medications Given to Patient : Yes Personal Belongings With Patient : Yes Prescriptions Given to Patient : No Discharge Instructions Reviewed With, Opportunity For Questions Given : Patient, Spouse Patient Education Completed : Yes Teaching Method : Demonstration, Explanation Teaching Evaluation : Returns demonstration, Verbalizes understanding ELIZABETH ALCANTAR, RN - 03/02/2019 8:08 EDT Electronically signed by Keily [facility] Conversion Preschool Adviser Cerner at 02/27/2023 2:20 PM CDT documented in this encounter Plan of Treatment Not on file documented as of this encounter Visit Diagnoses Not on filedocumented in this encounter Care Teams Geotechnical Engineer Relationship Specialty Start Date End Date Bryant Hogan MD [address] [place] [address] [place] [address] PCP - General General Internal Medicine 01/02/23 documented as of this encounter
--- OUTSIDE RECORDS SUMMARY | 2025-06-14 04:42 | XMS_ITS | Encounter Summary ---
Author Organization [employer] ([place], [place], [place], [place]) Address [address] [place] [address] Care Team Providers Care Steamfitter Name Role Phone Bryant Hogan MD Primary Care Provider [phone] Encounter Details Date Type Department Care Team (Late st Contact Info) Description 03/02/2019 Transcribed Document [facility] Family Medicine [facility] [place] [address] ProviderKel MD [address] [place] [address] [id number] Social History Tobacco Use Types Packs/Day Years Used Date Smoking Tobacco: Never Assessed Sex and Gender Information Value Date Recorded Sex Assigned at Not on file Legal Sex Male 6:06 PM CDT Gender Identity Not on file Sexual Orientation Not on file documented as of this encounter Miscellaneous Notes * Cerner Conversion Note - Kel Serrano MD - 03/02/2019 12:33 PM CDT DATE OF STUDY: 03/02/2019 ELECTROPHYSIOLOGY STUDY AND ABLATION REPORT PROCEDURE: 1. Comprehensive electrophysiologic study. 2. 3D electroanatomic mapping. 3. Catheter ablation. 4. Isoproterenol provocation. ATTENDING VP OUTCOMES: Candace Giraldo MD PRIMARY PARTS CONTROL CLERK: Michael Ramos MD PROCEDURE INDICATIONS: Recurrent symptomatic SVT refractory to medical therapy. BASELINE ELECTROCARDIOGRAM: Rhythm was normal, sinus, with no evidence of manifest presentation. PROCEDURE SUMMARY: After written witnessed informed consent was obtained for the procedure and sedation from the patient, the patient was transferred to the EP laboratory. The patient was in the fasting state. A grounding pad was placed. Self-adhesive anterior-posterior defibrillation pads were applied. Blood pressure was monitored. The procedure was performed in a post-abortive state of all antiarrhythmic drugs. The groins were prepped and draped in the usual sterile fashion. Local anesthesia with lidocaine 1% was given at the access site. Bilateral femoral venous access was obtained. The vessels were accessed using the modified Seldinger technique with a micro needle. Electrophysiologic testing was performed with multiple catheter technique. Measurements of basic intervals and refractory periods were obtained. Protocols included decremental pacing and programmed electrical stimulation. Stimuli were delivered from HRA, sinus ostium, and RV apex. 3D electroanatomic mapping of the right atrium was obtained and ablation of slow pathway was performed. Mapping was performed using [employer] [place] Art Carto System. Ablation was performed using radiofrequency energy. Applications were delivered via generator. Followup testing was performed 30 minutes post ablation. Sheaths were removed at the end of procedure. Hemostasis was obtained with [id number] sutures. VASCULAR ACCESS AND CATHETER PROPERTIES: 1. Right femoral vein: 8-Czech short sheath, [employer] Cochran deflectable decapolar CS catheter. 2. Right femoral vein: 6-Czech short sheath, [employer] Cochran quadripolar deflectable HIS catheter. 3. Right femoral vein: Long sheath SR0, Biosense Cochran open irrigation STSF F curve ablation catheter. 4. Left femoral vein: 6-Czech short sheath, Biosense Cochran quadripolar catheter, HRA. 5. Left femoral vein: 5-Czech short sheath, Biosense Cochran quadripolar catheter, RV apex. SEDATION: The procedure was performed under moderate conscious sedation administered by Anesthesia. COMPREHENSIVE ELECTROPHYSIOLOGY STUDY/ABLATION: The patient presents to EP laboratory in sinus rhythm. Baseline intervals showed sinus cycle length of 840 msec, WA 153 msec, QRS 79 msec, and QT 370 msec. AH is 65 msec and HV 46 msec. Pacing from RV apex, retrograde AV yahir Wenckebach cycle length was 260 msec and ventricular ERP 600/220 msec. Retrograde conduction was decremental and concentric. Para-Hisian pacing was performed and showed AV yahir response excluding any septal accessory concealed pathway. HRA pacing was then performed. Antegrade Wenckebach cycle length was 290 msec and atrial ERP was 600/240 msec. The patient was then started on isoproterenol and increased up to 6 mcg/minute with increase in heart rate more than 30%. HRA burst pacing down to 220 msec eventually induced sustained narrow complex tachycardia/SVT with a cycle length of 240 msec, short VA interval (V-HRA 54 msec and V-septal AI 60 msec), with linked VA interval. Attempted VOD terminated SVT. SVT was re-inducible, but again further attempts for a ventricular overdrive pacing terminated tachycardia about three to four beats after penetrating the circuit. The tachycardia also initiated spontaneously on one occasion. 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 Ablation of the slow pathway was then performed with ablation delivered anterior to CS ostium with atrial amplitude about one-third that of the ventricular amplitude on distal ablation bipole. Ablation was started at 30 schneider and gradually increased to 40 schneider with frequent junctional beats noted during ablation, but no evidence of AV block. Post-ablation isoproterenol infusion was again started and increased up to 6 mcg/minute and testing was repeated with HRA and CSOs burst pacing and programmed electrical stimulation with single extrastimuli with no evidence of AH jump or SVT induction. Testing was again repeated during isoproterenol washout again with no evidence of AH jump or SVT induction. Fine intervals did not change much and AH was 76 msec and HV 43 msec. Of note, post ablation testing was repeated up to more than 30 minutes post ablation. COMPLICATIONS: No immediate complications. DISCHARGE AND FOLLOWUP: The patient left the EP laboratory in stable condition. He will be monitored on tele for the next four hours with bed rest to be discharged home thereafter if he remains stable. SUMMARY: 1. 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 2. No evidence of manifest or concealed accessory pathways. RECOMMENDATIONS: 1. Bedrest for 4 hours. 2. Follow up with the office in one month. Thank you so much for allowing us to participate in the care of this patient. Candace Giraldo MD Dict: 03/02/2019 12:33:35 Trans: 03/02/2019 16:31:35 CC1: Candace Giraldo MD Electronically signed by [facility] Conversion Trade Facilitator Cerner at 02/27/2023 2:09 PM CDT documented in this encounter Plan of Treatment Not on file documented as of this encounter Visit Diagnoses Not on filedocumented in this encounter Care Teams Steamfitter Relationship Specialty Start Date End Date Bryant Hogan MD [address] [place] [address] [place] [id number] PCP - General General Internal Medicine 01/02/23 documented as of this encounter
--- OUTSIDE RECORDS SUMMARY | 2025-06-14 04:42 | XMS_ITS | Encounter Summary ---
Author Organization [employer] ([place], [place], [place], [place]) Address [address] [place] [address] Care Team Providers Care Director Of Agronomy Name Role Phone Bryant Hogan MD Primary Care Provider [phone] Encounter Details Date Type Department Care Team (Late st Contact Info) Description 03/02/2019 Transcribed Document [facility] Family [place] [address] ProviderKel MD [address] [place], [place] [id number] Social History Tobacco Use Types Packs/Day Years Used Date Smoking Tobacco: Never Assessed Sex and Gender Information Value Date Recorded Sex Assigned at Not on file Legal Sex Male 6:06 PM CDT Gender Identity Not on file Sexual Orientation Not on file documented as of this encounter Miscellaneous Notes * Cerner Conversion Note - Kel Serrano MD - 03/02/2019 6:23 AM CDT Pre Procedure Adult Entered On: 03/02/2019 6:29 EDT Performed On: 03/02/2019 6:23 EDT by GILDA COLE RN Height and Weight, Clinical Dosing Height Source : Stated Height Entry Format : [place] Height, Feet : 6 ft(Converted to: 183 cm, 72 Inch) Height, Inches : 2 Inch(Converted to: 0 ft 2 Inch, 5.08 cm) Clinical Height : 187.96 cm Weight Source : Standing scale Weight Entry Format : [place] Clinical Dosing Weight : 98.64 kg Weight, Pounds : 217 lb Body Surface Area (BSA) : 2.25 m2 Body Mass Index : 27.9 kg/m2 (HI) [place] Body Weight : 81 kg GILDA COLE RN - 03/02/2019 6:23 EDT Health Histories Smoking Status : Former smoker, quit more than 30 days ago Smokeless Tobacco Status : Never GILDA COLE RN - 03/02/2019 6:23 EDT Social History (As Of: 03/02/2019 06:29:23 EDT) Tobacco: Smoking Status Former smoker. Five or more cigarettes per day Smoking Frequency Within Last 30 Days. Years of Use: 20. Packs/Tins Daily: 2. Last Used: quit 10 years ago. (Last Updated: 12/04/2017 09:29:45 EST by AZALEA TOMAS RN) Alcohol: Alcohol Use History No. (Last Updated: 12/04/2017 09:29:55 EST by AZALEA TOMAS RN) Substance Abuse: Drug Use Hx: No. (Last Updated: 12/04/2017 09:29:59 EST by AZALEA TOMAS RN) Infectious Disease History Infectious Disease History : Influenza, Mumps Fever/Chills Last 48 Hours : No Travel To Regions with Travel Advisories : No Travel Outside [place] Within Last 30 Days : No Contact With Traveler to Advisory Region : No Tuberculosis Symptoms : None GILDA COLE RN - 03/02/2019 6:23 EDT Anesthesia/Transfusion History Family History of Anesthesia Reaction : No prior transfusion(s) Transfusion History : Prior anesthesia without reaction Family History of Anesthesia Reaction : None GILDA COLE RN - 03/02/2019 6:23 EDT Functional Assessment Living Situation : Home Patient Lives With : Spouse Current Home Treatments : None GILDA COLE RN - 03/02/2019 6:23 EDT Psychosocial History Do You Have a History of the Following? : Patient denies history Currently in Unsafe Situation : No Tried to Harm Yourself in the Past? : No Thoughts of Harming/Killing Yourself : No GILDA COLE RN - 03/02/2019 6:23 EDT Advance Directive Patient has Advance Directive *Q : No, patient refuses Advance Directive information GILDA COLE RN - 03/02/2019 6:23 EDT Teaching/Learning Assessment Barriers To Learning : None evident Individuals Taught : Patient, Spouse Readiness to Learn : Cooperative Readiness to Learn : Explanation Learning Style Preferences Patient : Verbal explanation GILDA COLE RN - 03/02/2019 6:23 EDT Education Topics, Periop Preadmission Perioperative Education Grid Arrival Time/Place : Verbalizes understanding CAUTI : Verbalizes understanding Central Lines : Verbalizes understanding CHG Preoperative Bathing/Cloths : Verbalizes understanding Falls : Verbalizes understanding Incentive Spirometry : Verbalizes understanding Infection Control : Verbalizes understanding IV's : Verbalizes understanding NPO Status/Directions : Verbalizes understanding Pain Management : Verbalizes understanding Postoperative Care Preparations : Verbalizes understanding Preprocedure Preparations : Verbalizes understanding Preprocedure Tests/Labs : Verbalizes understanding Remove Body Piercings : Verbalizes understanding Responsible Adult : Verbalizes understanding SNE's : Verbalizes understanding Take/Hold Medications Pre-Procedure : Verbalizes understanding Other : Verbalizes understanding GILDA COLE RN - 03/02/2019 6:23 EDT General Info Arrived From : Home Mode of Arrival on Unit : Ambulatory Patient Arrival Date/Time : 03/02/2019 6:15 EDT Legal Guardian : Spouse Want Family/Rep/Phys Notified of Admit : No Emergency Contact #1 : Linda Emergency Contact #1 Emergency Contact #1 Relationship : Emergency Contact #2 : na Emergency Contact #2 Phone Number : na Emergency Contact #2 Relationship : na Chief Complaint : EP/Ablation Information Obtained From : Patient, Spouse Primary Language : Micronesian Preferred Communication Mode : Verbal Communication Barrier : None GILDA COLE RN - 03/02/2019 6:23 EDT Vital Measurements Temperature Source : Temporal artery scanning Temperature Mode : Fahrenheit Temperature, Fahrenheit : 97.4 Deg F Clinical Temperature, C : 36.3 Deg C Peripheral Pulse Rate : 80 bpm Respiratory Rate : 16 Breaths/Min Systolic Blood Pressure : 141 mmHg (HI) Diastolic Blood Pressure : 85 mmHg Oxygen Saturation : 99 % GILDA COLE RN - 03/02/2019 6:23 EDT Sleep Apnea Risk Assmt Hx of Obstructive Sleep Apnea Diagnosis : No Snore Loudly : No Tired, Fatigued, or Sleepy During Day : No Observed Stopping Breathing During Sleep : No Have/Are Being Treated for Hypertension : Yes BMI Greater Than 35 kg/m2 : Yes Age over 50 Years Old : No Neck Circumference Greater Than 40 cm : Yes Gender Male : Yes STOP-BANG Sleep Apnea Risk Level Score : 4 GILDA COLE RN - 03/02/2019 6:23 EDT Isidoro Scale Isidoro Sensory Perception : No impairment Isidoro Moisture : Rarely moist Isidoro Activity : Walks frequently Isidoro Mobility : No limitation Isidoro Nutrition : Adequate Isidoro Friction and Shear : No apparent problem Isidoro Score : 22 GILDA COLE RN - 03/02/2019 6:23 EDT Pain Assessment Pain Assessment : Initial assessment Pain Scale Used : 0-10 Scale GILDA COLE RN - 03/02/2019 6:23 EDT Fall Risk Scales ABCs Fall Injury Risk Identification : None CAR Hx Falls Immediate/Within 3 Months : No Car Secondary Diagnosis : No CAR Use of Ambulatory Aid : None CAR IV Therapy or IV Access : Yes Car Gait/Transferring : Normal, bedrest, immobile Car Mental Status : Oriented to own ability Car Fall Risk Score : 20 CAR Fall Scale Risk Level : 0-24 Low Risk [place] Fall Interventions : Adequate lighting, Assistive devices within reach, Bed in low position, Call device within reach, Fall prevention handout/education per facility policy, Frequent orientation to call device, Frequent orientation to surroundings, Hourly comfort/safety rounds, Non-slip footwear, Personal items within reach, Reinforced to call for assistance before getting out of bed, Room free of clutter/spills, Upper side-rails up, Wheels locked, Wires/Cords secured GILDA COLE RN - 03/02/2019 6:23 EDT Valuables and Belongings Valuables and Belongings : Clothing, Jewelry, Personal items, No comfort items, No personal devices, No assistive devices, No respiratory devices, No medications Clothing : Common streetwear Clothing Disposition : With family Jewelry : Ring Jewelry Disposition : With family Personal Items : Wallet Personal Items Disposition : With family GILDA COLE RN - 03/02/2019 6:23 EDT Pain Scale Intensity : 0 GILDA COLE RN - 03/02/2019 6:23 EDT Image 4 - Images currently included in the form version of this document have not been included in the text rendition version of the form. documented in this encounter Plan of Treatment Not on file documented as of this encounter Visit Diagnoses Not on filedocumented in this encounter Care Teams Director Of Agronomy Relationship Specialty Start Date End Date Bryant Hogan MD [address] [place] [address] PCP - General General Internal Medicine 01/02/23 documented as of this encounter
--- OUTSIDE RECORDS SUMMARY | 2025-06-14 04:42 | XMS_ITS | Referral Summary ---
Author Organization [employer] ([place], [place], [place], [place]) Address [address] [place] [address] Care Team Providers Care Sewer Line Repairer Name Role Phone Bryant Hogan MD Primary Care Provider [phone] Allergies Active Allergy Reactions Criticality Noted Date Comments Ampicillin 12/31/2022 Medications atorvastatin (LIPITOR) 80 MG tablet Take 80 mg by mouth daily. Active dilTIAZem (CARDIZEM CD) 240 MG 24 hr capsule Take 240 mg by mouth daily. Active lisinopriL (PRINIVIL,ZESTR IL) 2.5 MG tablet Take 2.5 mg by mouth daily. Active naproxen sodium (ANAPROX) 550 MG tablet Take 550 mg by mouth every 12 (twelve) hours as needed. Active nitroglycerin (NITROSTAT) 0.[address] 0.4 mg under the tongue every 5 (five) minutes as needed Put 1 pill under tongue every 5min as needed for chest pain.No more than 3 doses in 15min.Call 911 if pain unrelieved 5min after 1st dose. Active tiZANidine (ZANAFLEX) 4 MG tablet Take 4 mg by mouth every 6 (six) hours as needed. Active ezetimibe (ZETIA) 10 mg tablet Take 10 mg by mouth daily. Active apixaban (Eliquis) 2.5 mg Tab tablet Take 2.5 mg by mouth 2 (two) times daily. Active Active Problems Problem Noted Date Diagnosed Date CAD (coronary artery disease) 12/31/2022 Overview (12/31/2022): 12/04/17 LHC- LMCA is normal. LAD is occluded. LCx is normal. RCA diffuse irregularity and fills LAD retrogradely. HLD (hyperlipidemia) 12/31/2022 HTN (hypertension) 12/31/2022 Paroxysmal A-fib 12/31/2022 Paroxysmal SVT (supraventricular tachycardia) Social History Tobacco Use Types Packs/Day Years Used Date Smoking Tobacco: Never Smokeless Tobacco: Current Food Insecurity Answer Date Recorded Food run out past 12 months Not on file 11/09 Food did not last past 12 months Not on file 11/27/2023 Employment Answer Date Recorded Help finding and keeping a job Not on file 0 11/27/2023 Family and Community Support Answer Genaro e Recorded Help with Day to Day Activities Not on file 11/27/2023 Feeling Lonely or Isolated Not on file 11/27 Educational Attainment Answer Date Tee rded Speak language other than Yemeni at home Not on file 11/27/2023 Want help with school or training Not on file 11/27/2023 Substance Use Answer Date Recorded Used prescription meds for non-medical reasons N ot on file 11/27/2023 Used illegal drugs past 12 months Not on file 11/27/2023 Sex and Gender Information Value Date Recorded Sex Assigned at Not on file Legal Sex Male 6:06 PM CDT Gender Identity Not on file Sexual Orientation Not on file Last Filed Vital Signs Vital Sign Reading Time Taken Comments Blood Pressure 118/82 01/02/2023 9:57 AM EST Pulse 64 01/02/2023 9:57 AM EST Temperature - - Respiratory Rate - - Oxygen Saturation - - Inhaled Oxygen Concentration - - Weight 108 kg (238 lb) 01/02/2023 9:57 AM EST Height 188 cm (6' 2 ) 01/02/2023 9:57 AM EST Body Mass Index 30.56 01/02/2023 9:57 AM EST Plan of Treatment Not on file Insurance BLUE CROSS/BLUE SHIELD Care Teams Sewer Line Repairer Relationship Specialty Start Date End Date Bryant Hogan MD [address] [place] [id number] PCP - General General Internal Medicine 01/02/23
--- OUTSIDE RECORDS SUMMARY | 2025-06-14 04:42 | XMS_ITS | Encounter Summary ---
Author Organization [facility] ([place], [place], [place], [place]) Address [address] [place] [address] Care Team Providers Care Semiconductor Assembler Name Role Phone Bryant Hogan MD Primary Care Provider [phone] Encounter Details Date Type Department Care Team (Late st Contact Info) Description 03/02/2019 Transcribed Document [facility] Family Medicine Pending [facility] [place] [address] ProviderKel MD [address], [place] [address] Social History Tobacco Use Types Packs/Day Years Used Date Smoking Tobacco: Never Assessed Sex and Gender Information Value Date Recorded Sex Assigned at Not on file Legal Sex Male 6:06 PM CDT Gender Identity Not on file Sexual Orientation Not on file documented as of this encounter Miscellaneous Notes * Cerner Conversion Note - Kel Serrano MD - 03/02/2019 8:08 AM CDT Patient Education Materials Follows: Groin Site Care Refer to this sheet in the next few weeks. These instructions provide you with information on caring for yourself after your procedure. Your caregiver may also give you more specific instructions. Your treatment has been planned according to current medical practices, but problems sometimes occur. Call your caregiver if you have any problems or questions after your procedure. HOME CARE INSTRUCTIONS ? You may shower 24 hours after the procedure. Remove the bandage (dressing ) and gently wash the site with plain soap and water. Gently pat the site dry. ? Do not apply powder or lotion to the site. ? Do not sit in a bathtub, swimming pool, or whirlpool for 5 to 7 days. ? No bending, squatting, or lifting anything over 10 pounds (4.5 kg) as directed by your caregiver. ? Inspect the site at least twice daily. ? Do not drive home if you are discharged the same day of the procedure. Have someone else drive you. ? You may drive 24 hours after the procedure unless otherwise instructed by your caregiver. What to expect: ? Any bruising will usually fade within 1 to 2 weeks. ? Blood that collects in the tissue (hematoma ) may be painful to the touch. It should usually decrease in size and tenderness within 1 to 2 weeks. SEEK IMMEDIATE MEDICAL CARE IF: ? You have unusual pain at the groin site or down the affected leg. ? You have redness, warmth, swelling, or pain at the groin site. ? You have drainage (other than a small amount of blood on the dressing). ? You have chills. ? You have a fever or persistent symptoms for more than 72 hours. ? You have a fever and your symptoms suddenly get worse. ? Your leg becomes pale, cool, tingly, or numb. ? You have heavy bleeding from the site. Hold pressure on the site. Document Released: 11/28/2011 Document Revised: 01/17/2013 Document Reviewed: 11/28/2011 ExitCare? Patient Information ?[address] My [address]. Electrophysiology Study, Care After This sheet gives you information about how to care for yourself after your procedure. Your health care provider may also give you more specific instructions. If you have problems or questions, contact your health care provider. What can I expect after the procedure? After the procedure, it is common to have: ??? Tenderness and bruising at the sites where the thin, flexible tubes (catheters) were inserted. ??? A feeling that your heartbeat is irregular or faster than normal (palpitations). Follow these instructions at home: Insertion site care??? Follow instructions from your health care provider about how to take care of your insertion site. Make sure you: ? Wash your hands with soap and water before you change your bandage (dressing). If soap and water are not available, use hand clerical aide teacher. ? Change your dressing as told by your health care provider. ? Leave stitches (sutures), skin glue, or adhesive strips in place. These skin closures may need to stay in place for 2 weeks or longer. If adhesive strip edges start to loosen and curl up, you may trim the loose edges. Do not remove adhesive strips completely unless your health care provider tells you to do that. ??? Check your insertion site every day for signs of infection. Check for: ? More redness, swelling, or pain. ? More fluid or blood. ? Warmth. ? Pus or a bad smell. ??? Do nottake baths, swim, or use a hot tub until your health care provider approves. General instructions ??? Do notdrive for 24 hours if you were given a medicine to help you relax (sedative). ??? Take anjy-rls-xafzuud and prescription medicines only as told by your health care provider. ??? Keep all follow-up visits as told by your health care provider. This is important. Contact a health care provider if: ??? You have more redness, swelling, or pain around your insertion site. ??? You have more fluid or blood coming from your insertion site. ??? Your insertion site feels warm to the touch. ??? You have pus or a bad smell coming from your insertion site. ??? You have a fever. ??? You develop a hard spot bigger than a walnut at the insertion site. This could be a blood clot. ??? You have a large amount of bruising that expands from the insertion site. ??? You feel light-headed. ??? You feel nauseous. ??? You feel dizzy. Get help right away if: ??? You have heavy bleeding from the catheter insertion site. ??? The limb, such as an arm or leg, that was used for the insertion site tingles, becomes numb, feels cold, or changes color. ??? You have chest pain or a heavy feeling in your chest. ??? You vomit repeatedly. ??? You faint. ??? You have trouble speaking, understanding speech, or both. ??? You have weakness on one side of your body. ??? You have a sudden change in vision. This information is not intended to replace advice given to you by your health care provider. Make sure you discuss any questions you have with your health care provider. Document Released: 08/16/2014 Document Revised: 05/29/2017 Document Reviewed: 05/04/2017 Followap Interactive Patient Education ? 2017 [employer] Moderate Conscious Sedation, Adult, Care After These instructions provide you with information about caring for yourself after your procedure. Your health care provider may also give you more specific instructions. Your treatment has been planned according to current medical practices, but problems sometimes occur. Call your health care provider if you have any problems or questions after your procedure. What can I expect after the procedure? After your procedure, it is common: ??? To feel sleepy for several hours. ??? To feel clumsy and have poor balance for several hours. ??? To have poor judgment for several hours. ??? To vomit if you eat too soon. Follow these instructions at home: For at least 24 hours after the procedure: ??? Do not: ? Participate in activities where you could fall or become injured. ? Drive. ? Use heavy machinery. ? Drink alcohol. ? Take sleeping pills or medicines that cause drowsiness. ? Make important decisions or sign legal documents. ? Take care of children on your own. ??? Rest. Eating and drinking ??? Follow the diet recommended by your health care provider. ??? If you vomit: ? Drink water, juice, or soup when you can drink without vomiting. ? Make sure you have little or no nausea before eating solid foods. General instructions ??? Have a responsible adult stay with you until you are awake and alert. ??? Take nrva-stn-ievkasa and prescription medicines only as told by your health care provider. ??? If you smoke, do not smoke without supervision. ??? Keep all follow-up visits as told by your health care provider. This is important. Contact a health care provider if: ??? You keep feeling nauseous or you keep vomiting. ??? You feel light-headed. ??? You develop a rash. ??? You have a fever. Get help right away if: ??? You have trouble breathing. This information is not intended to replace advice given to you by your health care provider. Make sure you discuss any questions you have with your health care provider. Document Released: 08/16/2014 Document Revised: 03/30/2017 Document Reviewed: 02/14/2017 Elsevier Interactive Patient Education ? 2017 [employer] documented in this encounter Plan of Treatment Not on file documented as of this encounter Visit Diagnoses Not on filedocumented in this encounter Care Teams Semiconductor Assembler Relationship Specialty Start Date End Date Bryant Hogan MD [address] [place] [address] PCP - General General Internal Medicine 01/02/23 documented as of this encounter
--- OUTSIDE RECORDS SUMMARY | 2025-06-14 04:42 | XMS_ITS | Clinical Summary ---
Author Organization [employer] ([place], [place], [place], [place]) Address [address] [place] [address] Care Team Providers Care Manufacturing Maintenance Technician Name Role Phone Bryant Hogan MD Primary Care Provider [phone] Allergies Active Allergy Reactions Criticality Noted Date [...] Date Tee rded Speak language other than [place] at home Not on file 11/27/2023 Want [...] 01/02/2023 9:57 AM EST Plan of Treatment Health Maintenance Due Date Last Done Comments CT Colonography 1972 Colonoscopy 1972 Colorectal Cancer Screening 1972 FOBT/FIT 1972 Fit-DNA (Cologuard) 1972 Sigmoidoscopy 1972 Depression Screening (12+) 1984 HIV Screening 1987 Hepatitis C Screening 1990 Pneumococcal 50+ years (1 of 2 - PCV) 1991 DTAP/TDAP/TD VACCINES (2 - Td or Tdap) 01/12/2007 Lipid Panel 2007 Shingles Vaccine (Zoster) (1 of 2) 2022 Tobacco Cessation Counseling and Screening (12+) 01/0201/02/2023 COVID-19 VACCINE ( - 2023- season) 2024 Influenza Vaccine (#1) 2025 Insurance [place] [id number] BLUE CROSS/BLUE SHIELD Care Teams Manufacturing Maintenance Technician Relationship Specialty Start Date End Date Bryant Hogan MD [address] [place] [address] PCP - General General Internal Medicine 01/02/23
--- OUTSIDE RECORDS SUMMARY | 2025-06-14 04:42 | XMS_ITS | Clinical Summary ---
[facility] Address [address] [place] [id number] Care Team Providers Care Order Checker Packer Processer Name Role Phone Bryant Hogan MD Primary Care Provider [phone] Allergies Active Allergy Reactions Criticality Noted Date Comments Ampicillin Rash Low 12/04/2020 Medications apixaban (ELIQUIS) 5 MG tablet tablet Take 5 mg by mouth 2 (Two) Times a Day. Active atorvastatin (LIPITOR) 80 MG tablet Take 80 mg by mouth Daily. Active dilTIAZem CD (CARDIZEM CD) 240 MG 24 hr capsule Take 240 mg by mouth Daily. Active lisinopril (PRINIVIL,ZESTR IL) 2.5 MG tablet Take 2.5 mg by mouth Daily. Active ezetimibe (Zetia) 10 MG tablet Take 10 mg by mouth Daily. Active nitroglycerin (NITROSTAT) 0.[address] 0.4 mg under the tongue Every 5 (Five) Minutes As Needed for Chest Pain. Take no more than 3 doses in 15 minutes. Active meloxicam (MOBIC) 7.5 MG tabletIndicatio ns:Traumatic incomplete tear of left rotator cuff, initial encounter,Bursi tis of left shoulder,Imping ement syndrome of left shoulder,Superi or glenoid labrum lesion of left shoulder, initial encounter 1 Oral Daily with food. 30 tablet 1 12/04/2020 Active Active Problems Problem Noted Date Diagnosed Date Traumatic incomplete tear of left rotator cuff 0 12/04/2020 Bursitis of left shoulder 12/04/2020 Impingement syndrome of left shoulder 12/04/2020 Superior glenoid labrum lesion of left shoulder 12/04/2020 Family History Medical History Relation Name Comments Heart disease Father Relation Name Status Comments Father Social History Tobacco Use Types Packs/Day Years Used Date Smoking Tobacco: Former Cigarettes Smokeless Tobacco: Current Snuff Alcohol Use Standard Drinks/Week Comments Never 0 (1 standard drink = 0.6 oz pur e alcohol) AUDIT-C Answer Date Recorded Q1: How often do you have a drink containing alc ohol? Never 12/04/2020 Average Number of Drinks Not on file 021 Frequency of Binge Drinking Not on file 11/10 Abuse Screen Answer Date Recorded Unsafe at Home or Work/School Not on file Feels Threatened by Someone? Not on file 09/2023 Does Anyone Keep You from Co ntacting Others or Doint Things Outside the Home? Not on file 08/19/2023 Physical Sign of Abuse Present Not on file 1 Housing Stability Answer Date Recorded Current Living Arrangements Not on file 08/09 Potentially Unsafe Housing Conditions Not on jakc e 08/19/2023 Family and Community Support Answer Genaro e Recorded Help with Day-to-Day Activities Not on file 08/19/2023 Lonely or Isolated Not on file 08/19/2023 Employment Answer Date Recorded Do you want help finding or keeping work or a mallika b? Not on file 08/19/2023 Disabilities Answer Date Recorded Concentrating, Remembering, or Making Decisions Difficulty Not on file 08/19/2023 Doing Errands Independently Difficulty Not on fi le 08/19/2023 Education Answer Date Recorded Help with school or training? Not on file Preferred Language Not on file 08/19/2023 Sex and Gender Information Value Date Recorded Sex Assigned at Not on file Legal Sex Male 1:34 PM EST Gender Identity Not on file Sexual Orientation Not on file Last Filed Vital Signs Vital Sign Reading Time Taken Comments Blood Pressure 149/80 02/05/2021 8:52 AM EDT Pulse 63 02/05/2021 8:52 AM EDT Temperature - - Respiratory Rate - - Oxygen Saturation 99% 12/04/2020 8:49 AM EST Inhaled Oxygen Concentration - - Weight 108 kg (237 lb) 02/05/2021 8:52 AM EDT Height 189 cm (6' 2.41 ) 02/05/2021 8:52 AM EDT Body Mass Index 30.1 02/05/2021 8:52 AM EDT Plan of Treatment Health Maintenance Due Date Last Done Comments TDAP/TD VACCINES (2 - Tdap) 01/12/2007 01/12/1997 COLOGUARD 2017 COLON CANCER SCREENING 5 YEAR SIGMOIDOSCOPY 2017 COLONOSCOPY [address] CANCER SCREENING [address] COLONOGRAPHY 2017 FECAL OCCULT BLOOD TEST 2017 FIT Testing (1 year) 2017 ANNUAL PHYSICAL 12/03/2020 HEPATITIS C SCREENING 12/03/2020 Pneumococcal Vaccine 50+ (1 of 1 - PCV) 2022 ZOSTER VACCINE (1 of 2) 2022 COVID-19 Vaccine (1 - 2023- season) 2024 INFLUENZA VACCINE 08/09/2025 Insurance [address] [place] [id number] [facility] [place] [employer] Care Teams Order Checker Packer Processer Relationship Specialty Start Date End Date Bryant Hogan MD [address] [facility] [address] [place] [address] PCP - General Internal Medicine 11/29/20
--- OUTSIDE RECORDS SUMMARY | 2025-06-14 04:42 | XMS_ITS | Encounter Summary ---
Author Organization [employer] ([place], [place], [place], [place]) Address [address] [place] [address] Care Team Providers Care Fringing Machine Operator Name Role Phone Bryant Hogan MD Primary Care Provider [phone] Encounter Details Date Type Department Care Team (Late st Contact Info) Description 03/02/2019 Transcribed Document [facility] [place] [facility] [address] [place] [address] ProviderKel MD [address] [place] [address] Social History Tobacco Use Types Packs/Day Years Used Date Smoking Tobacco: Never Assessed Sex and Gender Information Value Date Recorded Sex Assigned at Not on file Legal Sex Male 6:06 PM CDT Gender Identity Not on file Sexual Orientation Not on file documented as of this encounter Miscellaneous Notes * Cerner Conversion Note - Kel Serrano MD - 03/02/2019 11:11 AM CDT [facility] [place] [address] AKASH THAKKAR :1970 Visit Time:03/02/2019 Your Visit Summary Your Care Team Admitting Physician - RANDAL WORTHINGTON MD Attending Physician - RANDAL WORTHINGTON MD Primary Care Physician - BRYANT HOGAN (REF)MD-INT Referring Physician - RANDAL WORTHINGTON MD Your Diagnosis Supraventricular tachycardia, Supraventricular tachycardia Discharge Vitals Heart Rate (Monitored) 54 Respiratory Rate 15 Blood Pressure 95/61 What to do next Instructions From Your Care Team Do not drive for the next 24 hours. Monitor groin site for any signs or symptoms of infection, if noted, call your doctor. Monitor groin site for any signs of bleeding, if noted, apply manual pressure to site immediately and call 911. No heavy lifting, pushing, or pulling of greater than 10lbs for the next 7 days. Heart healthy diet. May shower in 24 hours. No hot tubs, tub baths, or swimming pools for the next 3-5 days or until site heals. May shower in 24 hours. Resume usual diet. Resume eliquis tonite. Discharge Activity: Discharge Activity: No strenuous activities Diet: Discharge Diet: Regular diet as tolerated Follow-Up Appointments Follow Up with RADNAL RICO When 03/31/2019 01:30 PM EDT Where: [address] [place] [address]- Business (1) Medications What How Much When Instructions Next Dose Unchanged apixaban (Eliquis 5 mg oral tablet) 1 Tablet(s) Oral Two Times A Day 03-02-2019 Unchanged atorvastatin (atorvastatin 40 mg oral tablet) 2 Tablet(s) Oral At Bedtime 03-02-2019 Unchanged dilTIAZem (Cartia XT 240 mg/ 24 hours oral capsule, extended release) 1 Capsule(s) Oral Every Day 03-02-2019 Unchanged lisinopril (lisinopril 2.5 mg oral tablet) 1 Tablet(s) Oral Every Day 03-02-2019 What How Much When Comments Stop Taking aspirin 81 Milligram(s) Oral Every Day Take your medications faithfully. Do NOT skip medication. Do NOT stop taking medications without the direction of a physician. Carry a list of your medications with you at all times, and take this medication list with you to your first follow up visit. Report any side effects. Avoid herbal remedies unless discussed with your physician. As part of your treatment plan, your physician may have prescribed a limited course of a controlled substance. This medication may be given to help people with moderate or severe pain or for other medical conditions, but there are risks involved with treatment. Common side effects may include nausea, constipation, drowsiness, sweating, itching, dry mouth, and rash. More serious side effects may include cognitive and motor impairment, like problems with thinking, concentrating, alertness, and movement (e.g. slowed reflexes), and driving and operating heavy machinery can be dangerous. It is important for you to talk to your physician if you have these side effects or questions. These controlled substances can produce physical dependence and be habit-forming if taken for an extended period of time, which means that the body has gotten used to them and may experience withdrawal symptoms if they are abruptly stopped. Withdrawal symptoms can include runny nose, sweating, goose bumps, diarrhea, abdominal cramping, rapid heartbeat, difficulty sleeping, and nervousness. Please dispose of unused and medications per your retail pharmacy guidance. Allergies ampicillin (rash) Immunizations This Visit No Immunizations Found Education Materials Groin Site Care Refer to this sheet [...] questions after your procedure. HOME CARE INSTRUCTIONS ??? You may shower 24 hours after the procedure. Remove the bandage (dressing ) and gently wash the site with plain soap and water. Gently pat the site dry. ??? Do not apply powder or lotion to the site. ??? Do not sit in a bathtub, swimming pool, or whirlpool for 5 to 7 days. ??? No bending, squatting, or lifting anything over 10 pounds (4.5 kg) as directed by your caregiver. ??? Inspect the site at least twice daily. ??? Do not drive home if you are discharged the same day of the procedure. Have someone else drive you. ??? You may drive 24 hours after the procedure unless otherwise instructed by your caregiver. What to expect: ??? Any bruising will usually fade within 1 to 2 weeks. ??? Blood that collects in the tissue (hematoma ) may be painful to the touch. It should usually decrease in size and tenderness within 1 to 2 weeks. SEEK IMMEDIATE MEDICAL CARE IF: ??? You have unusual pain at the groin site or down the affected leg. ??? You have redness, warmth, swelling, or pain at the groin site. ??? You have drainage (other than a small amount of blood on the dressing). ??? You have chills. ??? You have a fever or persistent symptoms for more than 72 hours. ??? You have a fever and your symptoms suddenly get worse. ??? Your leg becomes pale, cool, tingly, or numb. ??? You have heavy bleeding from the site. Hold pressure on the site. Document Released: 11/28/2011 Document Revised: 01/17/2013 Document Reviewed: 11/28/2011 ExitCare?? Patient Information ??2014 [employer]. Electrophysiology Study, Care After This sheet gives [...] Follow these instructions at home: Insertion site care ??? Follow instructions from your health care provider about how to take care of your insertion site. Make sure you: ? Wash your hands with soap and water before you change your bandage (dressing). If soap and water are not available, use hand english composition instructor. ? Change your dressing as told by [...] to help you relax (sedative). ??? Take wptd-xnm-cmpuskh and prescription medicines only as told by [...] 08/16/2014 Document Revised: 05/29/2017 Document Reviewed: 05/04/2017 [employer] Interactive Patient Education ?? 2017 [employer] Moderate Conscious Sedation, Adult, Care After [...] you are awake and alert. ??? Take dsup-hxa-qmyovao and prescription medicines only as told by [...] 08/16/2014 Document Revised: 03/30/2017 Document Reviewed: 02/14/2017 [employer] Interactive Patient Education ?? 2017 [employer] Emergency Awareness and Preventative Care STROKE is an EMERGENCY Every Minute Counts Act FAST and Check for these signs: FACE Does the face look uneven? ARM Does one arm drift down? SPEECH Does their speech sound strange? TIME Call at any sign of stroke Stroke Risk Factors Atrial Fibrillation (irregular heartbeat) Diabetes Family history of stroke Heart Disease Heavy alcohol use High Blood Pressure High Cholesterol Physical inactivity and obesity Smoking Cigarette Smoking The facts are clear, cigarette smoking will shorten your life. Smoking can cause many illnesses along the way. As a healthcare provider, we recommend that you stop smoking. Assistance with quitting is available by contacting 2-337-PBYM-NOW. This is a free resource providing counseling, support, and referral. Or you may contact your personal physician. National Suicide Prevention Lifeline: The National Suicide Prevention Lifeline is a national network of local crisis centers that provides free and confidential emotional support to people in suicidal crisis or emotional distress 24 hours a day, 7 days a week. Don't Wait! Stop a Heart Attack Before it Starts What is a heart attack? A heart attack is damage or to a part of the heart from severely decreased or lack of blood flow to the heart. Over time, arteries can become narrow from the buildup of fat and cholesterol, which is called plaque. The plaque can rupture causing a blood clot to form. When the blood clot forms, the artery can become severely narrowed or completely blocked, causing a heart attack. Heart attack is the leading cause of in the [place]. 85% of muscle damage occurs within the first 2 hours. Delay in the recognition of heart attack symptoms increases the chances of . Know the early symptoms of a heart attack: Nausea Feeling of fullness in chest Jaw Pain Pain that travels down one or both arms Fatigue/being tired Anxiety Back Pain Chest pressure, squeezing, or discomfort Shortness of breath Sweating, or a cold sweat Feeling of impending doom There are unusual signs of a heart attack, too! Women, the elderly, and diabetics may present with atypical symptoms: Fainting/dizziness Weakness Confusion Risk Factors for a Heart Attack Some heart disease risk factors, such as age and family history, cannot be changed. Others, like smoking and lack of exercise, can be changed. Smoking High Cholesterol High Blood Pressure Family History Obesity Age Gender (Males are at higher risk) Lack of Exercise Diabetes Diet Stress Excessive Alcohol Intake If you or someone you know is experiencing the signs and symptoms of a heart attack, DON???T DELAY. Call immediately and seek help. If someone collapses, perform CPR! Do not attempt to drive if you are having symptoms of heart attack. Hands-Only CPR Why Hands-Only CPR? Hands-Only CPR has been shown to be as effective as conventional CPR for cardiac arrests that occur outside of a hospital. Survival depends on immediately receiving CPR from someone nearby. How do you perform Hands-Only CPR? There are two easy steps: Call if you see a teen or adult collapse Push hard and fast in the center of the chest at a beat of 100 beats per minute. Save a life! 4 WAYS TO GET AHEAD OF SEPSIS SEPSIS is a MEDICAL EMERGENCY. Time matters! Infections put you and your family at risk for a life-threatening condition called sepsis. Sepsis is the body's extreme response to an infection. It is life-threatening, and without timely treatment, sepsis can rapidly lead to tissue damage, organ failure, and . Sepsis happens when an infection you already have-in your skin, lungs, urinary tract or somewhere else-triggers a chain reaction throughout your body. 1 PREVENT INFECTIONS Take good care of chronic conditions. Talk to your doctor about getting the recommended vaccines. 2 PRACTICE GOOD HYGIENE Wash your hands frequently. Keep cuts or open sores clean and covered until they are healed. 3 KNOW THE SYMPTOMS Confusion or disorientation Shortness of breath High heart rate Fever, shivering, or feeling very cold Extreme pain or discomfort Clammy or sweaty skin 4 ACT FAST Get medical care IMMEDIATELY if you suspect sepsis or if you have an infection that is not getting better or is getting worse. To learn more about sepsis and how to prevent infections, visit www.cdc.gov/sepsis. Patient Portal Reminder: Be sure to sign up for the [facility] patient portal, which gives you 01/06 access to your medical information ??? including these discharge instructions ??? using your computer, smartphone, or tablet. Just go to One Touch EMR to get started. Questions? Call . Test Results Laboratory or Other Results This Visit (last charted value for your 03/02/2019 visit) Hematology 03/02/19 06:36:00 Platelet Count: 292 K/uL -- Normal range between ( 163 and 369 ) Patient Name:AKASH THAKKAR I have received and understand this information and was given the opportunity to ask questions. Patient/Asphalt Paver Operator Name: Patient/Asphalt Paver Operator Signature: Relationship to Patient: Clinician/Hospital Asphalt Paver Operator Signature: Date: Electronically signed by Cholo Michaud Conversion Computer Engineering Technologist Cerner at 02/27/2023 2:10 PM CDT documented in this encounter Plan of Treatment Not on file documented as of this encounter Visit Diagnoses Not on filedocumented in this encounter Care Teams Fringing Machine Operator Relationship Specialty Start Date End Date Bryant oHgan MD [address] [place] [address] [place] [phone] PCP - General General Internal Medicine 01/02/23 documented as of this encounter
--- OUTSIDE RECORDS SUMMARY | 2025-06-14 04:42 | XMS_ITS | Clinical Summary ---
Author Organization [facility] Address [address] [place] [address] Phone [email or web address] Care Team Providers Care Aircraft General Repair Mechanic Name Role Phone Bryant Hogan Primary Care Provider Unavailabl e Allergies Active Allergy Reactions Criticality Noted Date Comments Ampicillin Hives,Itching 06/21/2018 Medications CARTIA XT 240 MG 24 hr capsule Take 480 mg by mouth 1 (one) time each day. 08/27/2018 Active atorvastatin (LIPITOR) 80 MG tablet 08/27/2018 Active lisinopril (PRINIVIL,ZESTR IL) 2.5 MG tablet 5 mg. 1 01/29/2019 Active nitroglycerin (NITROSTAT) 0.[address] 0.4 mg under the tongue every 5 (five) minutes if needed for chest pain. Active ezetimibe (ZETIA) 10 MG tablet Take 10 mg by mouth 1 (one) time each day in the morning. 08/28/2020 Active apixaban (ELIQUIS) 2.5 MG tablet Take 2.5 mg by mouth in the morning and 2.5 mg in the evening. Active Cholecalciferol (Vitamin D3) 50 MCG (1999) tablet Take 1 tablet by mouth 1 (one) time each day. 04/23/2023 Active naproxen (NAPROSYN) 500 MG tablet TAKE 1 TABLET BY MOUTH TWICE DAILY WITH FOOD /MEAL 05/11/2025 Active Active Problems Problem Noted Date Diagnosed Date Return to work exam 01/11/2025 Encounters Date Type Department Care Team Description 05/29/2025 5:30 AM EDT Clinical Support [facility] [address] [facility] [address] [place] [address] Oneida Choe RN Return to work evaluation (Primary Dx) from Last 3 Months Immunizations Immunization Administration Dates Next Due Td (TdVax), adult, 2 Lf teta nus toxoid, PF, adsorbed (CVX-09) 01/12/1997 Family History Medical History Relation Name Comments Diabetes Brother Hypertension Brother Cancer Father's Sister Diabetes Mother Hypertension Mother Hypertension Sister Relation Name Status Comments Brother Father's Sister Mother Sister Social History Tobacco Use Types Packs/Day Years Used Date Smoking Tobacco: Former Cigarettes Q uit: 11/18/2003 Smokeless Tobacco: Former Tobacco Cessation:Counseling Given: Not Answered Intimate Partner Violence Answer Date R ecorded [...] F) 05/29/2025 5:31 AM EDT Respiratory Rate 16 04/26/2025 9:45 AM EDT Oxygen Saturation 96% 05/29/2025 5:31 AM EDT Inhaled Oxygen Concentration - - Weight 116 kg (255 lb) 04/26/2025 9:45 AM EDT Height 188 cm (6' 2 ) 04/26/2025 9:45 AM EDT Body Mass Index 32.74 04/26/2025 9:45 AM EDT Plan of Treatment Health Maintenance Due Date Last Done Comments CT Colonography 1972 Colonoscopy 1972 Colorectal Cancer Screening Combo 1972 DNA Cologuard 1972 Dental Cleaning/Exam 1972 FIT or FOBT Test 1972 HIV Screening 1972 Hepatitis C Screening 1972 Sigmoidoscopy 1972 Annual Preventive Exam 1990 Hep B Infection Screening - Triple Screen 1990 Hepatitis B Immunization (1 of 3 - 19+ 3-dose series) 1991 Tetanus Diphtheria and Pertu ssis Immunization (1 - Tdap) 01/13/1997 01/12/1997 Zoster Immunization (1 of 2) 2022 Covid-19 Immunization (1 - 2 season) 2024 Influenza Immunization (#1) 2025 HIB Immunization Aged Out No longer e ligible based on patient's age to complete this topic HPV Immunization Aged Out No longer e ligible based on patient's age to complete this topic Hepatitis A Immunization Aged Out No longer eligible based on patient's age to complete this topic Pneumococcal: Ped (0 to 5 Yr s) and At-Risk Member (6 to 64 Yrs) Aged Out No longer e ligible based on patient's age to complete this topic Polio Immunization Aged Out No longer eligible based on patient's age to complete this topic Insurance AMANDEEP IN [employer]AY 5 Care Teams Aircraft General Repair Mechanic Relationship Specialty [place] [address] PCP - General Therapeutic Dietitian 09/20/20
[2025-06-14 05:08] VITALS: BP 132/85; PULSE 61; RESP 16; O2SAT 95
[2025-06-14 05:24] VITALS: BP 132/85; PULSE 67; RESP 16; TEMP 37.1; O2SAT 100
== END 2025-06-14 05:31 | disposition home or self-care (01) ==
PROVIDERS: Emergency Provider Emergency Medicine; PCP Internal Medicine
DX: R29.898 Other symptoms and signs involving the musculoskeletal system (principal); R11.0 Nausea; R42 Dizziness and giddiness; I45.10 Unspecified right bundle-branch block; I48.0 Paroxysmal atrial fibrillation; I10 Essential (primary) hypertension; E78.5 Hyperlipidemia, unspecified; Z79.01 Long term (current) use of anticoagulants
CPT/HCPCS: 80053; 83735; 85025; 93005; 99283

== ENCOUNTER 2025-10-24 14:02 | Outpatient (CLI) | payer BC, SELFPAY ==
--- OUTSIDE RECORDS SUMMARY | 2025-10-16 06:00 | XMS_ITS | Encounter Summary ---
Author Organization [facility] Address [address] [place] [address] Phone [email or web address] Care Team Providers Care Director Mobile Media Solutions Name Role Phone Bryant Hogan Primary Care Provider Unavailabl e Reason for Visit * Reason Comments Return to Work / Duty Encounter Details Date Type Department Care Team (Latest Contact Info) Description 10/16/2025 6:00 AM EST Clinical Support [employer] [address] [place] [address] Holly Gaona, RN [address] [place] [address] Return to work exam (Primary Dx) Social History Tobacco Use Types [...] Sign Reading Time Taken Comments Blood Pressure 156/78 10/16/2025 6:15 AM EST Pulse 66 10/16/2025 6:15 AM EST Temperature 36.6 C (97.9 F) 10/16/2025 6:15 AM EST Respiratory Rate 18 10/16/2025 6:15 AM EST Oxygen Saturation 98% 10/16/2025 6:15 AM EST Inhaled Oxygen Concentration - - Weight - - Height - - Body Mass Index - - documented in this encounter Patient Instructions * Patient Instructions* Holly Gaona RN - 10/16/2025 6:00 AM EST RTW Regular Duty on 10/16/25 F/u as needed EEN ATTENDANT documented in this encounter Progress Notes * Holly Gaona RN - 10/16/2025 6:00 AM EST Akash Walton is a 55 y.o. male who presents for personal return to work. WD ID: [id number] Employer: [employer] Date of Hire: 02/2017 Cost Center: [id number] Description: PWT Team: MAR 2 Shift: 1 Full-time GL and #: Emilie Ulloa LDW: 10/09/25 RELEASE: 10/16/25 [facility]. BENJI has been out for a viral infection and presents to clinic with release from Bryant Hogan MD at [facility]. TM states that his symptoms were mostly upper respiratory. TM denies any lingering s/s atthis time. TM was tested for flu and covid by his PCP which both came back negative. TM was given azithromycin pack which he has finished. TM feels ready to return to work, and has a releasenote in hand. TM reports being asymptomatic at this time. RN advised TM to monitor BP. TM denies any SOB, cough, LHD, or CP. Visit Vitals BP (!) 156/78 Pulse 66 Temp 97.9 ??F Resp 18 SpO2 98% Smoking Status Former PHQ-9 Total Score: 0 (01/11/2025 9:25 AM) ICD-10-CM ICD-9-CM 1. Return to work exam Z76.89 V72.85 Patient Instructions RTW Regular Duty on 10/16/25 F/u as needed Holly Gaona RN EEN ATTENDANT documented in this encounter Plan of Treatment Not on file documented as of this encounter Visit Diagnoses Diagnosis Return to work exam- Primary documented in this encounter Care Teams Director Mobile Media Solutions Relationship Specialty [place] [address] PCP - General Acid Polymerization Operator 09/20/20 documented as of this encounter
--- NOTE | 2025-10-24 14:05 | XR_ITS ---
FINAL REPORT CLINICAL HISTORY: Ongoing cough, rales left lung base, low-grade fever COMPARISON: 04/12/2022 FINDINGS: 2 views of the chest were obtained . The heart is normal in size. The mediastinum is within normal limits. The lungs are clear. There is no pneumothorax. Osseous structures are unremarkable. IMPRESSION: No acute cardiopulmonary process. Reviewed, Interpreted and Dictated by Marisa Ortega MD Transcribed by Reena Em Authenticated and [facility]
--- OUTSIDE RECORDS SUMMARY | 2025-10-24 14:05 | XMS_ITS | Referral Summary ---
Author Organization [employer] ([place], [place], [place], [place], [place]) Address [address] [place] [address] Care Team Providers Care Commercial Credit Lead Name Role Phone Bryant Hogan MD Primary Care Provider [phone] Allergies Active Allergy Reactions Criticality Noted Date [...] CAD (coronary artery disease) 12/31/2022 Overview (12/31/2022): 1/26/18 LHC- LMCA is normal. LAD is occluded. [...] Date Tee rded Speak language other than Irish at home Not on file 11/27/2023 Want [...] file Insurance BLUE CROSS/BLUE SHIELD Care Teams Commercial Credit Lead Relationship Specialty Start Date End Date Bryant Hogan MD [address] [place] [phone] PCP - General General Internal Medicine 01/02/23
--- OUTSIDE RECORDS SUMMARY | 2025-10-24 14:05 | XMS_ITS | Encounter Summary ---
Author Organization [facility] Address [address] [place] [address] Phone [email or web address] Care Team Providers Care Anesthesiology Teacher Name Role Phone Bryant Hogan Primary Care Provider Unavailabl e Encounter Details Date Type Department Care Team (Late Contact Info) Description 10/13/[address] [address] No, [place] [address] Social History Tobacco Use Types Packs/Day Years [...] as of this encounter Miscellaneous Notes * Telephone Encounter - Celeste Cordero - 10/13/2025 9:45 AM EST Akash Walton calls clinic to discuss return to work after personal medical leave of absence for viral Infection . WD ID: [id number] Employer: [employer] Cost Center: [id number] Shift: 1st Full-time GL and #: Stomy pain Previous/current indefinite restrictions? No LDW: 10/09/25 DOS: N/A PROCEDURE: N/A SURGEON: N/A RELEASE: Regular Duty 10/16/25 Additional notes from phone call: has note If WMLOA, still getting compensation from work comp? No: [employer] If WMLOA, treatment for any personal medical condition during leave? No If PMLOA, work-related injury immediately before leave? No Same day occ or personal follow up scheduled? No Reviewed and/or scheduled for WC/WH? No Request sent to confirm cost center? No Celeste Cordero AINABILITY COMMUNICATOR documented in this encounter Plan of Treatment Not on file documented as of this encounter Visit Diagnoses Not on filedocumented in this encounter Care Teams Anesthesiology Teacher Relationship Specialty [place] [address] PCP - General Molecular Genetic Pathologist 09/20/20 documented as of this encounter
--- OUTSIDE RECORDS SUMMARY | 2025-10-24 14:05 | XMS_ITS | Clinical Summary ---
Author Organization [facility] Address [address] [place] [address] Phone [email or web address] Care Team Providers Care Motorcycle Fabricator Name Role Phone Bryant Hogan Primary Care [...] evening. Active Cholecalciferol (Vitamin D3) 50 MCG (1999 UT) tablet Take 1 tablet by mouth 1 (one) time each day. 04/23/2023 Active naproxen (NAPROSYN) 500 MG tablet TAKE 1 TABLET BY MOUTH TWICE DAILY WITH FOOD /MEAL 05/11/2025 Active azithromycin (ZITHROMAX) 250 MG tablet TAKE 2 TABLETS BY MOUTH ON DAY 1, AND THEN TAKE 1 TABLET BY MOUTH ONCE A DAY ON DAY 2 THROUGH DAY 5 10/10/2025 Active Active Problems Problem Noted Date Diagnosed Date Return to work exam 01/11/2025 Encounters Date Type Department Care Team Description 10/16/2025 6:00 AM EST Clinical Support [employer] [address] [place] [address] Holly Gaona, RN Return to work exam (Primary Dx) 10/13[facility] [place] [address] [place] [address] No, Pcp from Last 3 Months Immunizations Immunization Administration [...] EST Inhaled Oxygen Concentration - - Weight 116 [...] ssis Immunization (1 - Tdap) 01/13/1997 01/12/1997 Pneumococcal: 50+ Years (1 o f 1 - PCV) 2022 Zoster Immunization (1 of 2) 2022 Covid-19 Immunization (1 - 2 025-26 season) 2025 Influenza Immunization (#1) 2025 HIB Immunization Aged [...] patient's age to complete this topic Insurance AMANDEEPEM IN [place]AY 5 Care Teams Motorcycle Fabricator Relationship Specialty [place] [address] PCP - General Gas Combustion Engineer 09/20/20
--- OUTSIDE RECORDS SUMMARY | 2025-10-24 14:05 | XMS_ITS | Encounter Summary ---
Author Organization [employer] ([place], [place], [place], [place], [place]) Address [address] [place] [address] Care Team Providers Care Countersinker Name Role Phone Bryant Hogan MD Primary Care Provider [phone] Encounter Details Date Type Department Care Team (Late st Contact Info) Description 03/02/2019 Transcribed Document [facility] [place] Family Medicine [address] [place] [address] ProviderKel MD [address] [place] [address] Social History Tobacco Use Types Packs/Day Years Used Date Smoking Tobacco: Never Assessed Sex and Gender Information Value Date Recorded Sex Assigned at Not on file Legal Sex Male 6:06 PM CDT Gender Identity Not on file Sexual Orientation Not on file documented as of this encounter Miscellaneous Notes * Cerner Conversion Note - Kel ProviderMD - 03/02/2019 8:08 AM CDT Nursing Discharge Summary Entered On: 03/02/2019 8:09 EDT Performed On: 03/02/2019 8:08 EDT by ELIZABETH ALCANTAR, structural drafter Documentation Discharge Date/Time : 03/02/2019 15:15 EDT ELIZABETH ALCANTAR RN - 03/02/2019 15:14 EDT Patient Disposition, [...] 03/02/2019 8:08 EDT Electronically signed by Keily [facility] Conversion Ordained Minister Cerner at 02/27/2023 2:20 PM CDT documented in this encounter Plan of Treatment Not on file documented as of this encounter Visit Diagnoses Not on filedocumented in this encounter Care Teams Countersinker Relationship Specialty Start Date End Date Bryant Hogan MD [address] [place] [address] PCP - General General Internal Medicine 01/02/23 documented as of this encounter
--- OUTSIDE RECORDS SUMMARY | 2025-10-24 14:05 | XMS_ITS | Clinical Summary ---
Author Organization [employer] ([place], [place], [place], [place], [place]) Address [address] [place] [address] Care Team Providers Care Photovoltaic Panel Installer Name Role Phone Bryant Hogan MD Primary Care Provider [phone] Allergies Active Allergy Reactions Criticality Noted Date [...] Date Tee rded Speak language other than Turkish at home Not on file 11/27/2023 Want [...] 01/0201/02/2023 COVID-19 VACCINE ( - 2023- season) 2025 Influenza Vaccine (#1) 2025 Insurance [facility] [employer] [place] [id number] BLUE CROSS/BLUE SHIELD Care Teams Photovoltaic Panel Installer Relationship Specialty Start Date End Date Bryant Hogan MD [address] [place] [address] PCP - General General Internal Medicine 01/02/23
--- OUTSIDE RECORDS SUMMARY | 2025-10-24 14:05 | XMS_ITS | Encounter Summary ---
Author Organization [employer] ([place], [place], [place], [place], [place]) Address [address] [place] [address] Care Team Providers Care Modeling Teacher Name Role Phone Bryant Hogan MD Primary Care Provider [phone] Encounter Details Date Type Department Care Team (Late st Contact Info) Description 03/02/2019 Transcribed Document [facility] [place] Family Medicine [address] [place] [address] ProviderKel MD [address] [place], [place] [address] Social History Tobacco Use Types Packs/Day Years [...] Document Reviewed: 11/28/2011 ExitCare? Patient Information ?2013 [employer]. Electrophysiology Study, Care After This sheet gives [...] and water are not available, use hand driveway attendant. ? Change your dressing as told by [...] to help you relax (sedative). ??? Take sjcj-lin-vmcerci and prescription medicines only as told by [...] 08/16/2014 Document Revised: 05/29/2017 Document Reviewed: 05/04/2017 [employer] Interactive Patient Education ? 2017 [employer] Moderate Conscious Sedation, Adult, Care After [...] you are awake and alert. ??? Take swsw-wig-nkhzaff and prescription medicines only as told by [...] 02/14/2017 Elsevier Interactive Patient Education ? 2017 [employer] documented in this encounter Plan of Treatment Not on file documented as of this encounter Visit Diagnoses Not on filedocumented in this encounter Care Teams Modeling Teacher Relationship Specialty Start Date End Date Bryant Hogan MD [address] [place] [address] PCP - General General Internal Medicine 01/02/23 documented as of this encounter
--- OUTSIDE RECORDS SUMMARY | 2025-10-24 14:05 | XMS_ITS | Clinical Summary ---
Author Organization [facility] Address [address] [place] [id number] Care Team Providers Care Specialist Managers Name Role Phone Bryant Hogan MD Primary Care Provider [phone] Allergies Active Allergy Reactions Criticality Noted Date [...] 08/09 Potentially Unsafe Housing Conditions Not on jack e 08/19/2023 Family and Community Support Answer [...] Due Date Last Done Comments TDAP/TD VACCINES (1 - Tdap) 01/13/1997 01/12/1997 COLOGUARD 2017 COLON CANCER SCREENING 5 YEAR SIGMOIDOSCOPY 2017 COLONOSCOPY 2017 COLORECTAL CANCER SCREENING 2017 CT COLONOGRAPHY 2017 FECAL OCCULT BLOOD TEST 2017 FIT Testing (1 year) 2017 ANNUAL PHYSICAL 12/03/2020 HEPATITIS C SCREENING 12/03/2020 Pneumococcal Vaccine 50+ (1 of 1 - PCV) 2022 ZOSTER VACCINE (1 of 2) 2022 INFLUENZA VACCINE 06/09/2025 Insurance [facility] [employer] Care Teams Specialist Managers Relationship Specialty Start Date End Date Bryant Hogan MD [address] [facility] [address] [place] [address] PCP - General Internal Medicine 11/29/20
--- OUTSIDE RECORDS SUMMARY | 2025-10-24 14:05 | XMS_ITS | Encounter Summary ---
Author Organization [employer] ([place], [place], [place], [place], [place]) Address [address] [place] [address] Care Team Providers Care Cash Analyst Name Role Phone Bryant Hogan MD Primary Care Provider [phone] Encounter Details Date Type Department Care Team (Late st Contact Info) Description 03/02/2019 Transcribed Document [facility] [place] [address] ProviderKel MD [address] [place] [address] Social History Tobacco Use Types Packs/Day Years Used Date Smoking Tobacco: Never Assessed Sex and Gender Information Value Date Recorded Sex Assigned at Not on file Legal Sex Male 6:06 PM CDT Gender Identity Not on file Sexual Orientation Not on file documented as of this encounter Miscellaneous Notes * Cerner Conversion Note - Kel ProviderMD - 03/02/2019 6:23 AM CDT Pre Procedure Adult Entered On: 03/02/2019 6:29 EDT Performed On: 03/02/2019 6:23 EDT by GILDA COLE RN Height and Weight, Clinical Dosing Height Source : Stated Height Entry Format : Sanders Height, Feet : 6 ft(Converted to: 183 cm, 72 Inch) Height, Inches : 2 Inch(Converted to: 0 ft 2 Inch, 5.08 cm) Clinical Height : 187.96 cm Weight Source : Standing scale Weight Entry Format : Sanders Clinical Dosing Weight : 98.64 kg Weight, Pounds : 217 lb Body Surface Area (BSA) : 2.25 m2 Body Mass Index : 27.9 kg/m2 (HI) Sharon Body Weight : 81 kg GILDA COLE [...] From : Patient, Spouse Primary Language : Setswana Preferred Communication Mode : Verbal Communication Barrier [...] Scale Risk Level : 0-24 Low Risk [place] Fall Interventions : Adequate lighting, Assistive devices [...] the text rendition version of the form. Electronically signed by Malik Michaud Conversion Paraffin Plant Sweater Operator Cerner at 02/27/2023 2:12 PM CDT documented in this encounter Plan of Treatment Not on file documented as of this encounter Visit Diagnoses Not on filedocumented in this encounter Care Teams Cash Analyst Relationship Specialty Start Date End Date Bryant Hogan MD [address] [place] [address] PCP - General General Internal Medicine 01/02/23 documented as of this encounter
--- OUTSIDE RECORDS SUMMARY | 2025-10-24 14:05 | XMS_ITS | Encounter Summary ---
Author Organization [employer] ([place], [place], [place], [place], [place]) Address [address] [place] [address] Care Team Providers Care Crew Boss Name Role Phone Bryant Hogan MD Primary Care Provider [phone] Encounter Details Date Type Department Care Team (Late st Contact Info) Description 03/02/2019 Transcribed Document [facility] [place] [address] ProviderKel MD [address] [place] [address] Social History Tobacco Use Types Packs/Day Years [...] 3. Catheter ablation. 4. Isoproterenol provocation. ATTENDING LICENSING REPRESENTATIVE: Candace Giraldo MD PRIMARY STUDENT WORKER: Michael Ramos MD PROCEDURE INDICATIONS: Recurrent symptomatic [...] pathway was performed. Mapping was performed using [employer] System. Ablation was performed using radiofrequency energy. Applications were delivered via generator. Followup testing was performed 30 minutes post ablation. Sheaths were removed at the end of procedure. Hemostasis was obtained with ldhmyv-el-muwrw sutures. VASCULAR ACCESS AND CATHETER PROPERTIES: 1. Right femoral vein: 8-American short sheath, Biosense Cochran deflectable decapolar CS catheter. 2. Right femoral vein: 6-American short sheath, Biosense Cochran quadripolar deflectable HIS catheter. 3. Right femoral vein: Long sheath SR0, [employer]ense Cochran open irrigation STSF F curve ablation catheter. 4. Left femoral vein: 6-American short sheath, Biosense Cochran quadripolar catheter, HRA. 5. Left femoral vein: 5-American short sheath, Biosense Cochran quadripolar catheter, RV [...] CC1: Candace Giraldo MD Electronically signed by [facility] Conversion Foreign Broadcast Specialist Cerner at 02/27/2023 2:09 PM CDT documented in this encounter Plan of Treatment Not on file documented as of this encounter Visit Diagnoses Not on filedocumented in this encounter Care Teams Crew Boss Relationship Specialty Start Date End Date Bryant Hogan MD [address] [place] [address] PCP - General General Internal Medicine 01/02/23 documented as of this encounter
--- OUTSIDE RECORDS SUMMARY | 2025-10-24 14:05 | XMS_ITS | Encounter Summary ---
Author Organization [employer] ([place], [place], [place], [place], [place]) Address [address] [place] [address] Care Team Providers Care Scrap Metal Burner Name Role Phone Bryant Hogan MD Primary Care Provider [phone] Encounter Details Date Type Department Care Team (Late st Contact Info) Description 03/02/2019 Transcribed Document [facility] [place] Family Medicine [address] [place] [address] ProviderKel MD [address] [place], [place] [id number] Social History Tobacco Use Types Packs/Day Years Used Date Smoking Tobacco: Never Assessed Sex and Gender Information Value Date Recorded Sex Assigned at Not on file Legal Sex Male 6:06 PM CDT Gender Identity Not on file Sexual Orientation Not on file documented as of this encounter Miscellaneous Notes * Cerner Conversion Note - Kel Serrano MD - 03/02/2019 11:11 AM CDT [facility] [place], [place] [id number] AKASH THAKKAR :1970 Visit Time:03/02/2019 Your Visit [...] as tolerated Follow-Up Appointments Follow Up with RANDAL RICO When 03/31/2019 01:30 PM EDT Where: [address] [place] [address]- Business (1) Medications What How Much When [...] Document Reviewed: 11/28/2011 ExitCare?? Patient Information ??2014 [employer]. Electrophysiology Study, Care After This sheet gives [...] and water are not available, use hand research administrator. ? Change your dressing as told by [...] to help you relax (sedative). ??? Take bvab-hxa-vusugpe and prescription medicines only as told by [...] 08/16/2014 Document Revised: 05/29/2017 Document Reviewed: 05/04/2017 [employer] Interactive Patient Education ?? 2017 [employer] Moderate Conscious Sedation, Adult, Care After [...] you are awake and alert. ??? Take prsd-pnj-jqslkfs and prescription medicines only as told by [...] 08/16/2014 Document Revised: 03/30/2017 Document Reviewed: 02/14/2017 [employer] Interactive Patient Education ?? 2017 [employer] Emergency Awareness and Preventative Care STROKE [...] Assistance with quitting is available by contacting 4-521-JNHC-NOW. This is a free resource providing counseling, [...] Be sure to sign up for the [facility] patient portal, which gives you 01/06 access to your medical information ??? including these discharge instructions ??? using your computer, smartphone, or tablet. Just go to [email or web address] to get started. Questions? Call . Test Results Laboratory or Other Results This Visit (last charted value for your 03/02/2019 visit) Hematology 03/02/19 06:36:00 Platelet Count: 292 K/uL -- Normal range between ( 163 and 369 ) Patient Name:AKASH THAKKAR I have received and understand this information and was given the opportunity to ask questions. Patient/Canine Service Instructor Trainer Name: Patient/Canine Service Instructor Trainer Signature: Relationship to Patient: Clinician/Hospital Canine Service Instructor Trainer Signature: Date: Electronically signed by Malik Michaud Conversion Conference Center Coordinator [employer] at 02/27/2023 2:10 PM CDT documented in this encounter Plan of Treatment Not on file documented as of this encounter Visit Diagnoses Not on filedocumented in this encounter Care Teams Scrap Metal Burner Relationship Specialty Start Date End Date Bryant Hogan MD [address] [place] [id number] PCP - General General Internal Medicine 01/02/23 documented as of this encounter
== END 2025-10-24 23:59 | disposition home or self-care (01) ==
LOC: RAD 14:03
PROVIDERS: PCP Internal Medicine; Visit Provider Internal Medicine
DX: R05.9 Cough, unspecified (principal); R09.89 Other specified symptoms and signs involving the circulatory and respiratory systems; R50.9 Fever, unspecified
CPT/HCPCS: 71046